=== PATIENT | male | born 1945 | race Caucasian/White ===

== ENCOUNTER 2017-04-28 06:52 | Emergency (ER) | payer MEDICARE, OTHER ==
[~2017-04-28] VITALS: Ht 176.5 cm; Wt 100.0 kg
[~2017-04-28 06:52] MED LIST: AMMONIUM LACTATE121 TOP; BACITRACIN1 GM EX; C 500 PO; CEPHALEXIN500 MG PO; CIPRO XR500 MG PO; CLONAZEPAM0.5 MG PO; COREG12.5 MG PO; COUMADIN5 MG PO; DORZOLAMIDE HCL2 % OP; FISH OIL1000 MG PO; GENTAMICIN0.1 % TOP; GENTAMICIN0.11 EX; GENTAMICIN0.11 TOP; KEFLEX500 MG PO; KETOCONAZOLE2 % EX; LIPITOR40 MG PO; LYRICA100 MG PO; LYRICA300 MG PO; MAXZIDE-2537.5 MG/TA PO; METFORMIN500 MG PO; MICARDIS40 MG PO; MULTIVITAMI3 OR; MULTIVITAMIN PO; OPANA ER20 MG OR; OPANA ER5 MG OR; OPANA10 MG OR; SANTYL250 MG/GM EX; TIMOLOL 0.5%5 ML OP; TRAMADOL HCL50 MG PO; TRAVATAN Z0.004 % OP; TRAVATAN0.0041 OP
[2017-04-28 08:12] LABS: HEMATOCRIT 42.9 % (39.0-50.0); HEMOGLOBIN 14.1 g/dl (14.0-18.0); IMMATURE GRANULOCYTES 0.4 % (0.0-1.0); MEAN CELL VOLUME 98.4 fL CALC (80.0-100.0); MEAN CORPUSCULAR HGB 32.3 pG CALC (26.0-32.0); MEAN CORPUSCULAR HGB CONC 32.9 g/L CALC (32.0-36.0); NEUT# 6.32 thou/uL (1.82-7.42); RED BLOOD COUNT 4.36 mill/uL (4.70-6.10); RED CELL DISTRI WIDTH 13.2 % (11.5-15.5)
[2017-04-28 08:18] LABS: ALBUMIN 3.9 g/dL (3.2-5.0); BILIRUBIN, TOTAL 0.4 mg/dL (0.0-1.4); CREATININE 1.5 mg/dL (0.7-1.3); POTASSIUM 4.4 mmol/l (3.5-5.1); TOTAL PROTEIN 7.1 g/dL (6.3-8.2)
[2017-04-28 08:39] LABS: INTERNATIONAL NORMALIZED RATIO 10.3 RATIO (0.7-1.3); PROTHROMBIN TIME 121.5 SECONDS (9.0-12.5)
[2017-04-28 09:19] VITALS: BP 126/64
== END 2017-04-28 09:23 | disposition home or self-care (01) ==
LOC: ED 06:52
PROVIDERS: Emergency Medicine
DX: R79.1 Abnormal coagulation profile (principal); Z95.5 Presence of coronary angioplasty implant and graft; Z79.01 Long term (current) use of anticoagulants; F17.210 Nicotine dependence, cigarettes, uncomplicated

== ENCOUNTER → 2018-01-01 | Outpatient (REF) | payer MEDICARE, OTHER ==
[2018-01-01 08:18] LABS: INTERNATIONAL NORMALIZED RATIO 1.1 RATIO (0.7-1.3); PROTHROMBIN TIME 11.4 SECONDS (9.0-12.5)
== END | disposition home or self-care (01) ==
LOC: LAB 06:39
PROVIDERS: ATTEND Surgery
DX: Z51.81 Encounter for therapeutic drug level monitoring (principal)

== ENCOUNTER → 2018-05-17 | Outpatient (REF) | payer MEDICARE, OTHER ==
[2018-05-17 11:53] LABS: HEMATOCRIT 39.2 % (39.0-50.0); HEMOGLOBIN 12.6 g/dl (14.0-18.0); IMMATURE GRANULOCYTES 0.5 % (0.0-5.0); MEAN CELL VOLUME 99.5 fL CALC (80.0-100.0); MEAN CORPUSCULAR HGB CONC 32.1 g/L CALC (32.0-36.0); NEUT# 4.33 thou/uL (1.82-7.42); RED BLOOD COUNT 3.94 mill/uL (4.70-6.10)
== END | disposition home or self-care (01) ==
LOC: LABSPEC 11:24
PROVIDERS: ATTEND Internal Medicine Infectious Disease
DX: M86.10 Other acute osteomyelitis, unspecified site (principal); M25.50 Pain in unspecified joint

== ENCOUNTER → 2018-05-24 | Outpatient (REF) | payer MEDICARE, OTHER ==
[2018-05-24 12:13] LABS: HEMATOCRIT 38.6 % (39.0-50.0); HEMOGLOBIN 12.3 g/dl (14.0-18.0); IMMATURE GRANULOCYTES 0.4 % (0.0-5.0); MEAN CELL VOLUME 99.5 fL CALC (80.0-100.0); MEAN CORPUSCULAR HGB 31.7 pG CALC (26.0-32.0); MEAN CORPUSCULAR HGB CONC 31.9 g/L CALC (32.0-36.0); NEUT# 4.71 thou/uL (1.82-7.42); RED BLOOD COUNT 3.88 mill/uL (4.70-6.10); RED CELL DISTRI WIDTH 14.5 % (11.5-15.5)
== END | disposition home or self-care (01) ==
LOC: LABSPEC 11:24
PROVIDERS: ATTEND Internal Medicine Infectious Disease
DX: M86.10 Other acute osteomyelitis, unspecified site (principal); M25.50 Pain in unspecified joint

== ENCOUNTER → 2018-05-31 | Outpatient (REF) | payer MEDICARE, OTHER ==
[2018-05-31 14:53] LABS: HEMATOCRIT 41.2 % (39.0-50.0); HEMOGLOBIN 13.2 g/dl (14.0-18.0); IMMATURE GRANULOCYTES 0.4 % (0.0-5.0); MEAN CELL VOLUME 99.8 fL CALC (80.0-100.0); NEUT# 4.55 thou/uL (1.82-7.42); RED BLOOD COUNT 4.13 mill/uL (4.70-6.10); RED CELL DISTRI WIDTH 14.5 % (11.5-15.5)
[2018-05-31 15:34] LABS: ALBUMIN 4.2 g/dL (3.2-5.0); BILIRUBIN, TOTAL 0.5 mg/dL (0.0-1.4); CREATININE 1.7 mg/dL (0.7-1.3); POTASSIUM 4.4 mmol/l (3.5-5.1)
== END | disposition home or self-care (01) ==
LOC: LAB 14:26
PROVIDERS: ATTEND Internal Medicine Infectious Disease
DX: M86.10 Other acute osteomyelitis, unspecified site (principal); M25.50 Pain in unspecified joint

== ENCOUNTER → 2018-06-07 | Outpatient (REF) | payer MEDICARE, OTHER ==
[2018-06-07 12:10] LABS: HEMATOCRIT 40.3 % (39.0-50.0); HEMOGLOBIN 12.8 g/dl (14.0-18.0); IMMATURE GRANULOCYTES 0.5 % (0.0-5.0); MEAN CORPUSCULAR HGB 31.4 pG CALC (26.0-32.0); MEAN CORPUSCULAR HGB CONC 31.8 g/L CALC (32.0-36.0); NEUT# 5.26 thou/uL (1.82-7.42); RED BLOOD COUNT 4.07 mill/uL (4.70-6.10); RED CELL DISTRI WIDTH 14.6 % (11.5-15.5)
[2018-06-07 12:36] LABS: BILIRUBIN, TOTAL 0.6 mg/dL (0.0-1.4); CREATININE 1.4 mg/dL (0.7-1.3); POTASSIUM 4.3 mmol/l (3.5-5.1); TOTAL PROTEIN 7.6 g/dL (6.3-8.2)
== END | disposition home or self-care (01) ==
LOC: LAB 11:36
PROVIDERS: ATTEND Internal Medicine Infectious Disease
DX: M86.10 Other acute osteomyelitis, unspecified site (principal); M25.50 Pain in unspecified joint

== ENCOUNTER → 2018-06-11 | Outpatient (REF) | payer MEDICARE, OTHER ==
[2018-06-11 08:00] LABS: PROTHROMBIN TIME 10.7 SECONDS (9.0-12.5)
[2018-06-11 08:18] LABS: HEMATOCRIT 40.1 % (39.0-50.0); HEMOGLOBIN 12.7 g/dl (14.0-18.0); IMMATURE GRANULOCYTES 0.5 % (0.0-5.0); MEAN CELL VOLUME 99.8 fL CALC (80.0-100.0); MEAN CORPUSCULAR HGB 31.6 pG CALC (26.0-32.0); MEAN CORPUSCULAR HGB CONC 31.7 g/L CALC (32.0-36.0); NEUT# 4.25 thou/uL (1.82-7.42); RED BLOOD COUNT 4.02 mill/uL (4.70-6.10); RED CELL DISTRI WIDTH 14.7 % (11.5-15.5)
[2018-06-11 08:44] LABS: ALBUMIN 3.9 g/dL (3.2-5.0); BILIRUBIN, TOTAL 0.7 mg/dL (0.0-1.4); CREATININE 1.9 mg/dL (0.7-1.3); POTASSIUM 4.5 mmol/l (3.5-5.1); TOTAL PROTEIN 7.4 g/dL (6.3-8.2)
[2018-06-11 09:00] LABS: CHOLESTEROL HDL RATIO 4.2 (<4.4 (CALC))
[2018-06-11 09:22] LABS: TSH, 3RD GENERATION 1.43 uIU/mL (0.47 - 4.68)
== END | disposition home or self-care (01) ==
LOC: LAB 06:59
PROVIDERS: ATTEND Surgery
DX: E11.65 Type 2 diabetes mellitus with hyperglycemia (principal); E78.2 Mixed hyperlipidemia; I10 Essential (primary) hypertension; E66.01 Morbid (severe) obesity due to excess calories; K43.0 Incisional hernia with obstruction, without gangrene; Z51.81 Encounter for therapeutic drug level monitoring; E55.9 Vitamin D deficiency, unspecified; Z79.899 Other long term (current) drug therapy; Z12.5 Encounter for screening for malignant neoplasm of prostate

== ENCOUNTER 2019-04-05 10:33 | Inpatient (IN) | payer MEDICARE ==
[~2019-04-05] VITALS: Ht 175.3 cm; Wt 104.8 kg
--- NOTE | 2019-04-05 10:50 | NUR ---
PATIENT TO ROOM VIA EMS, BEDSIDE TRIAGE COMPLETED.
[2019-04-05 11:28] LABS: HEMATOCRIT 42.6 % (39.0-50.0); HEMOGLOBIN 13.7 g/dl (14.0-18.0); IMMATURE GRANULOCYTES 0.6 % (0.0-5.0); MEAN CELL VOLUME 98.4 fL CALC (80.0-100.0); MEAN CORPUSCULAR HGB 31.6 pG CALC (26.0-32.0); MEAN CORPUSCULAR HGB CONC 32.2 g/L CALC (32.0-36.0); NEUT# 3.4 thou/uL (1.82-7.42); RED BLOOD COUNT 4.33 mill/uL (4.70-6.10); RED CELL DISTRI WIDTH 13.7 % (11.5-15.5)
[2019-04-05 11:45] LABS: URINE BILIRUBIN - DIPSTICK NEGATIVE (NEGATIVE); URINE BLOOD DIPSTICK SMALL (NEGATIVE); URINE COLOR YELLOW; URINE GLUCOSE - DIPSTICK NEGATIVE (NEGATIVE); URINE KETONE NEGATIVE (NEGATIVE); URINE LEUK ESTERASE NEGATIVE (NEGATIVE); URINE NITRITE - DIPSTICK NEGATIVE (Negative); URINE PH 5.5 (4.5-8.0); URINE PROTEIN - DIPSTICK 100 mg/dL (NEG-TRACE); URINE SPECIFIC GRAVITY >=1.030; URINE UROBILINOGEN - DIPSTICK 0.2 E.U./dL (0.2)
[2019-04-05 11:46] LABS: URINE RBC 0-2 RBC/hpf (0-5); URINE WBC 0-2 WBC/hpf (0-5)
--- NOTE | 2019-04-05 11:50 | NUR ---
PT ASSISTED WITH URINAL AT THIS TIME; PT HAD MODERATE EXERTION WITH MOVEMENT; MONITORING DEVICES IN PLACE; [address]; PT FAMILY AT BEDSIDE; WILL CONTINUE TO MONITOR
[2019-04-05 11:51] LABS: INTERNATIONAL NORMALIZED RATIO 2.4 RATIO (0.7-1.3); PROTHROMBIN TIME 24.1 SECONDS (9.0-12.5)
[2019-04-05 11:56] LABS: ALBUMIN 3.3 g/dL (3.2-5.0); ALKALINE PHOSPHATASE 62 u/l (38-126); ANION GAP 14 (6-22 (CALC)); BUN 27 mg/dL (8-23); BUN/CREATININE RATIO 22 (12-20 (CALC)); CARBON DIOXIDE 26 mmol/l (22-30); CHLORIDE 101 mmol/l (95-108); CREATININE 1.2 mg/dL (0.7-1.3); GFR 59 ML/MIN (>=60 (CALC)); GFR FOR AFR.AMER. > 60 ML/MIN (>=60 (CALC)); SODIUM 137 mmol/l (137-146); TOTAL PROTEIN 6.8 g/dL (6.3-8.2)
[2019-04-05 11:58] LABS: BILIRUBIN, TOTAL 0.8 mg/dL (0.0-1.4); SGOT/AST 49 u/l (19-48)
--- NOTE | 2019-04-05 12:30 | NUR ---
DR TONEY AT BEDSIDE TO DISCUSS POC AND PLAN TO ADMIT; PT VERBALIZES UNDERSTANDING; VSS; WILL CONTINUE TO MONITOR
--- NOTE | 2019-04-05 12:34 | NUR ---
SBAR PRINTED TO FLOOR
--- NOTE | 2019-04-05 12:39 | NUR ---
Patient made inpatient by Dr. Marte and Dr. Kendall
--- NOTE | 2019-04-05 13:00 | NUR ---
DR SHANE AT BEDSIDE
[2019-04-05] MEDS ORDERED: ASPIRIN 81 LOW81 MG PO (13:27)
[2019-04-05] MEDS ORDERED: GABAPENTIN300 M2 PO (13:28)
[2019-04-05] MEDS ORDERED: D 10001000 UNIT PO (13:45)
[2019-04-05] MEDS ORDERED: B-121000 MC4 PO (13:46)
--- NOTE | 2019-04-05 14:00 | NUR ---
PT ASSISTED TO BEDPAN; MODERATE SOFT BM NOTED; PERICARE PROVIDED; MONITORING DEVICES IN PLACE; WILL CONTINUE TO MONITOR; PT ADVISED ON CONTINUED WAIT TIME FOR ADMISSION
--- NOTE | 2019-04-05 15:00 | NUR ---
PT MEDICATED PER MAR; PT RESTING ON STRETCHER; NO S/S OF DISTRESS NOTED; WILL CONTINUE TO MONITOR
--- NOTE | 2019-04-05 15:29 | NUR ---
S: LUIS ARENAS is a 73 M who presents with Pneumonia and Influenza A. He has a history of type II Diabetes, Heart Disease, Afib. All medications in patient's chart were reviewed. Allergy to Iodine O: VS: BP 157/114 mmHg, P 119 bpm, RR 18 breaths/minutes, T 96.9 F W 102 kg, HT 69in, Scr= 1.2 mg/dL ,CrCl= 64.5 ml/min A: Blood culture is pending. P: Patient is on Azithromycin 500mg IV Q24H, Ceftriaxone 1GM IV Q24H. Vancomycin ordered for pharmacy to dose. Start Vancomycin 1000mg IV Q12H. Vancomycin trough is drawn before the 4th dose on 04/07/2019 at 03:30. Vancomycin goal trough is between 15-20 mcg/ml. Pharmacy will follow and or advise on antibiotics use as needed.
--- NOTE | 2019-04-05 16:00 | NUR ---
REPORT CALLED TO BATOOL SPEAR;
--- NOTE | 2019-04-05 16:15 | NUR ---
PT ARRIVED TO MED/SURG ROOM 272 IN STABLE CONDITION VIA STRETCHER ACCOMPANIED BY AMBAR CÁRDENAS AND FAMILY MEMBER;PT AMBULATED WITH A WEAK GAIT AND 2 PERSON ASSIST;PT A&O X3, FORGETFULNESS NOTED AT TIMES;ORIENTED TO ROOM AND CALL LIGHT SYSTEM;PT DENIES ANY CURRENT PAIN OR DISCOMFORTS,PAIN SCALE AND REPORTING EDUACTED;RESPIRATIONS SHALLOW ON O2 @ 3L VIA NC,PT IS NOT HOME DEPENDENT;LUNG SOUNDS COARSE/WET;ABDOMEN DISTENDED/SOFT ON PALPATION WITH HERNIA NOTED,LAST BM 04/05/19;WEAK PEDAL PULSES;HEALING ABRASION NOTED TO LEFT KNEE;EMS #18G TO RAC INFUSING VANCO PER ORDER;ACCUCHECK 115, NO COVERAGE NEEDED;TELE MONITORING IN PLACE;ALLERGY BAND AND FALL BRACLET APPLIED;DROPLET PRECAUTIONS INITIATED;PT DENIES ANY ADDITIONAL NEEDS AND IS ENCOURAGED TO CALL FOR ASSISTANCE IF NEEDED;FALL PRECAUTIONS IN PLACE WITH BED ALARM ON FOR SAFETY;CALL LIGHT IN REACH;TRICIA CONTINUE TO MONITOR
--- NOTE | 2019-04-05 16:20 | NUR ---
Admission Note Report Given to: BATOOL SPEAR Transported by: Wheelchair X Stretcher Transported with: X Nurse Transporter X Patent IV X O2 X Harvest Worker Field Crop Location: ICU X MS2
[2019-04-05 16:46] VITALS: BP 140/87
[2019-04-05 19:35] VITALS: BP 110/61
--- NOTE | 2019-04-05 20:35 | NUR ---
ASSESSMENT COMPLETED. IV SITE PATENT AND SL, FLUSHES WELL. DENIES NEEDS/PAIN. PT. DOES HAVE EXERTIONAL SOB ANDO2 INFUSING PER NC @3LITERS/MIN PER NC. TELEMETRY IN PLACE. UPDATED ON POC. PT. REQUESTS PRN SONATA TO ASSIST WITH SLEEP AND MEDICATED WITH THIS ALONG WITH SCHED MEDS. CALL LIGHT IS IN REACH. WILL CONTINUE TO MONITOR.
--- NOTE | 2019-04-05 20:50 | NUR ---
CALLED AND SPOKE WITH DR. SHANE AND NOTIFIED HIM OF CRITICAL HIGH TROPONIN BEING 0.424 AND THAT PT. HAS NO COMPLAINTS OF CP. DR. SHANE IS THE ONE WHO ORDERED THE STAT TROPONIN. NEW ORDER RECEIVED FOR REPEAT TROPONIN IN 4 HRS AND CALL MD WITH RESULTS. PER DR. SHANE HE WANTS TO BE NOTIFIED OF TROPONIN LEVEL INSTEAD OF GROOVER AND TURNER MD DR. DEL TORO.
--- NOTE | 2019-04-05 22:35 | NUR ---
SPOKE WITH DR. SHANE AND NOTIFIED HIM OF PT'S ALLERFY TO IODINE AND UNABLE TO TAKE CONTRAST FOR CT. NEW ORDERS RECEIVED FOR CT WITHOUT CONTRAST.
--- NOTE | 2019-04-05 23:28 | NUR ---
PT. BACK FROM CT AT THIS TIME VIA W/C ACCOMPANIED BY IS CONSULTANT.
--- NOTE | 2019-04-05 23:59 | NUR ---
EDUCATEION GIVEN ON I/S AND ABLE TO PULL 500, 5 REPS COMPLETED. GOAL SET TO 750. UPDATED ON POC. CALL LIGHT IS IN REACH.
[2019-04-06] VITALS (7 sets, daily range): BP systolic 108–147; BP diastolic 50–72
--- NOTE | 2019-04-06 02:01 | NUR ---
NOTIFIED DR. SHANE OF 0.393 TROPONIN LEVEL REMAINING CRITICAL HIGH, BUT TRENDED DOWN. ORDERS RECIEVED FOR AM LABS AND TO CARRY THEM OUT.
--- NOTE | 2019-04-06 03:42 | NUR ---
PT. RESTING IN BED WITH NO DISTRESS NOTED; DENIES NEEDS/PAIN. ENCOURAGED TO CALL FOR ANY NEEDS. CALL LIGHT IS IN REACH.
--- NOTE | 2019-04-06 07:05 | NUR ---
REPORT RECEIVED FROM AMBAR PEREZ;PT APPEARS TO BE SLEEPING IN SUPINE POSITION;NO S/S OF DISTRESS NOTED;RESPIRATIONS APPEAR EVEN AND UNLABORED ON O2 @ 3L VIA NC;TELE MONITORING IN PLACE;ALL SAFETY PRECAUTIONS NOTED WITH BED IN THE LOWEST POSITION AND BED ALARM ON FOR SAFETY;CALL LIGHT IN REACH;WILL CONTINUE TO MONITOR
[2019-04-06 07:33] LABS: HEMOGLOBIN 12.5 g/dl (14.0-18.0); IMMATURE GRANULOCYTES 0.4 % (0.0-5.0); MEAN CELL VOLUME 103.8 fL CALC (80.0-100.0); MEAN CORPUSCULAR HGB 31.6 pG CALC (26.0-32.0); MEAN CORPUSCULAR HGB CONC 30.5 g/L CALC (32.0-36.0); NEUT# 2.41 thou/uL (1.82-7.42); RED BLOOD COUNT 3.95 mill/uL (4.70-6.10); RED CELL DISTRI WIDTH 13.8 % (11.5-15.5)
[2019-04-06 08:00] LABS: INTERNATIONAL NORMALIZED RATIO 2.6 RATIO (0.7-1.3); PROTHROMBIN TIME 25.7 SECONDS (9.0-12.5)
[2019-04-06 08:02] LABS: ALKALINE PHOSPHATASE 46 u/l (38-126); ANION GAP 10 (6-22 (CALC)); BILIRUBIN, TOTAL 0.4 mg/dL (0.0-1.4); BUN 31 mg/dL (8-23); BUN/CREATININE RATIO 29 (12-20 (CALC)); CARBON DIOXIDE 27 mmol/l (22-30); CHLORIDE 104 mmol/l (95-108); CREATININE 1.1 mg/dL (0.7-1.3); GFR > 60 ML/MIN (>=60 (CALC)); GFR FOR AFR.AMER. > 60 ML/MIN (>=60 (CALC)); POTASSIUM 3.9 mmol/l (3.5-5.1); SGOT/AST 49 u/l (19-48); SODIUM 137 mmol/l (137-146); TOTAL PROTEIN 6.4 g/dL (6.3-8.2)
--- NOTE | 2019-04-06 08:25 | NUR ---
CRITICAL TROP RECEIVED AT THIS TIME RESULTING IN 0.242, SARAH SIMMS NOTIFIED;NO NEW ORDERS RECEIVED AT THIS TIME.
--- NOTE | 2019-04-06 08:30 | NUR ---
PT RESTING IN RECLINER,A&O X3 BUT FORGETFUL AT TIMES;VS OBTAINED AND ASSESSMENT COMPLETED;PT DENIES ANY CURRENT PAIN OR DISCOMFORTS,PAIN SCALE AND REPORTING EDUCATED;RESPIRATIONS SHALLOW ON O2 @ 3L VIA NC;ABDOMEN DISTENDED/SOFT ON PALPATION AND ACTIVE IN ALL 4 QUADRANTS;ABDOMINAL HERNIA NOTED;WEAK PEDAL PULSES;TELE MONITORING IN PLACE;EMS #18G REMOVED DUE TO EXPIRATION DATE WITH CATHETER INTACT,NEW #22G STARTED TO KILO ON 1ST ATTEMPT BY THIS WRITTER,PT TOLERATED WELL;DROPLET PRECAUTIONS IN PLACE;PT DENIES ANY ADDITIONAL NEEDS AND IS ENCOURAGED TO CALL FOR ASSISTANCE IF NEEDED;CALL LIGHT IN REACH;WILL CONTINUE TO MONITOR
--- NOTE | 2019-04-06 11:44 | NUR ---
CARDIOLOGY ANRP AT BEDSIDE WITH PT.
--- NOTE | 2019-04-06 12:15 | NUR ---
PT RESTING AT BEDSIDE EATING LUNCH;RESPIRATIONS EVEN AND UNLABORED ON O2 @ 3L VIA NC;PT DENIES ANY CURRENT PAIN OR DISCOMFORTS;TELE MONITORING IN PLACE;ABX HUNG AT THIS TIME;ACCUCHECK 214, PT COVERED WITH SLIDING SCALE NOVOLOG PER ORDER;PT DENIES ANY ADDITIONAL NEEDS AND IS ENCOURAGED TO CALL FOR ASSISTANCE IF NEEDED;CALL LIGHT IN REACH;WILL CONTINUE TO MONITOR
--- NOTE | 2019-04-06 12:24 | NUR ---
AT BEDSIDE DISCUSSING POC.
--- NOTE | 2019-04-06 14:23 | NUR ---
AMBAR DUPREE AT BEDSIDE ATTEMPTING IV SITE.
--- NOTE | 2019-04-06 15:00 | NUR ---
PT TRANSPORTED TO [facility] IN STABLE CONDITION VIA WHELCHAIR ACCOMPANIED BY CNA. GRACIA
--- NOTE | 2019-04-06 15:40 | NUR ---
PT RETURNED TO MED/SURG IN STABLE CONDITION VIA WHEELCHAIR ACCOMPANIED BY PINKY SAMUEL.
--- NOTE | 2019-04-06 15:45 | NUR ---
PT RESTING IN SEMI FOWLERS POSITION;RESPIRATIONS REMAIN EVEN AND UNLABORED,SHALLOW ON O2 @ 3L VIA NC;PT DENIES ANY CURRENT PAIN OR NEEDS;TELE MONITORING IN PLACE;IV SITE PATENT;DROPLET PRECAUTIONS IN PLACE;PT ENCOURAGED TO CALL FOR ASSISTANCE IF NEEDED;FALL PRECAUTIONS IN PLACE WITH CALL LIGHT IN REACH;WILL CONTINUE TO MONITOR
--- NOTE | 2019-04-06 19:59 | NUR ---
PT SLEEPING AT THIS TIME. NO S/O DISTRESS NOTED. CALL LIGHT AT BEDSIDE.
--- NOTE | 2019-04-06 22:21 | NUR ---
PT MEDICATED ORDERS PROVIDE. ASSESSMENT COMPLETED AT THIS TIME. PT WAS SLEEPING I ENTERED THE ROOM, AWOKE TO MY VOICE AND TOUCH. PT DENIES PAIN AND REPORTS FEELING WELL. LOCX3. DENIES ANY OTHER NEEDS AND ENCOURAGED PT TO CALL NEEDS ARISE. BED ALARM ON FOR SAFETY PRECAUTIONS/FORGETFULLNESS.
--- NOTE | 2019-04-06 23:50 | NUR ---
PT MEDICATED W/IV ANTIBIOTIC THERAPY. PT WAS SLEEPING, AWOKE TO MY VOICE, BUT QUICKLY RETURNED TO SLEEP. NO S/O DISTRESS NOTED.
[2019-04-07 03:25] VITALS: BP 118/70
[2019-04-07 03:50] LABS: HEMATOCRIT 36.8 % (39.0-50.0); HEMOGLOBIN 11.6 g/dl (14.0-18.0); IMMATURE GRANULOCYTES 0.2 % (0.0-5.0); MEAN CELL VOLUME 100.8 fL CALC (80.0-100.0); MEAN CORPUSCULAR HGB 31.8 pG CALC (26.0-32.0); MEAN CORPUSCULAR HGB CONC 31.5 g/L CALC (32.0-36.0); NEUT# 1.83 thou/uL (1.82-7.42); RED BLOOD COUNT 3.65 mill/uL (4.70-6.10); RED CELL DISTRI WIDTH 13.9 % (11.5-15.5)
[2019-04-07 04:04] LABS: ANION GAP 9 (6-22 (CALC)); BUN 33 mg/dL (8-23); BUN/CREATININE RATIO 29 (12-20 (CALC)); CARBON DIOXIDE 28 mmol/l (22-30); CHLORIDE 107 mmol/l (95-108); CREATININE 1.1 mg/dL (0.7-1.3); GFR > 60 ML/MIN (>=60 (CALC)); GFR FOR AFR.AMER. > 60 ML/MIN (>=60 (CALC)); MAGNESIUM 2.1 mg/dL (1.6-2.3); POTASSIUM 4.2 mmol/l (3.5-5.1); SODIUM 139 mmol/l (137-146)
--- NOTE | 2019-04-07 04:29 | NUR ---
PT SLEEPING AT THIS TIME. NO S/O DISTRESS NOTED. WILL MEDICATE PT W/IV ANTIBIOTICS ORDERED SOON PENDING VANCO TROUGH IS AVAILABLE.
--- NOTE | 2019-04-07 04:55 | NUR ---
PT ASSISTED TO BSC AND BACK TO BED. IV ANTIBIOTICS ARE RUNNING AT THIS TIME. 200CC OF DARK YELLOW URINE OUTPUT AT THIS TIME. PT UP AND TALKATIVE SHOWING ME PICTURES OF HIS CAR COLLECTION AND FAMILY.
--- NOTE | 2019-04-07 07:36 | NUR ---
PRELIMINARY BLOOD CULTURE RESULTS SHOWING ONE BOTTLE GRAM POSITIVE COCCI, CALLED TO PHYSICIAN. PT CURRENTLY RECEIVING VANCOMYCIN.
--- NOTE | 2019-04-07 07:59 | NUR ---
Vancomycin consult Weight: 103 Kilograms Current dose being given: 1000 mg Current dosing interval: 12 hrs Current infusion time (hrs): 2 Trough level obtained: 12 mcg/ml Timing of trough - # of hrs before next dose: 0.5 Hrs New rate constant (shannan): 0.067 hr-1 Half-life: 10.35 Hours Vd from levels: 72.10 Liters (0.7 L/kg) CLvanco= 4.831 L/hr Vancomycin 1250 mg q 12 hrs start at 1600 today Infuse over 2 hrs Expected Cpeak: 29 mcg/mL Expected Ctrough: 15 mcg/mL next trough on 04/09/19 at 0330
[2019-04-07 09:00] VITALS: BP 110/60
[2019-04-07 10:55] VITALS: BP 128/54
[2019-04-07] MEDS ORDERED: ENTRESTO 24-261 TAB PO (14:01)
[2019-04-07 15:05] VITALS: BP 131/55
[2019-04-07 17:01] LABS: INTERNATIONAL NORMALIZED RATIO 1.9 RATIO (0.7-1.3); PROTHROMBIN TIME 19.4 SECONDS (9.0-12.5)
--- NOTE | 2019-04-07 19:32 | NUR ---
PT ALERT AND ORIENTED X 3. ABLE TO MAKE NEEDS KNOWN. CONTINUES ON ABT FOR PNA WITH NO ADVERSE REACTIONS NOTED. ON OXYGEN 3L VIA NASAL CANNULA. ASSISTED WITH TRANSFERS TO BEDSIDE COMMODE. EDUCATED TO CALL NURSE FOR ASSISTANCE. CALL SOLANO WITHIN REACH. NO C/O PAIN. INDWELLING KING PATENT. BED IN LOWEST POSITION.
[2019-04-07 19:35] VITALS: BP 148/85
--- NOTE | 2019-04-07 20:55 | NUR ---
PT ASSISTED TO BSC. PT ASKED TO SIT FOR AWHILE. LEFT W/CALL LIGHT W/IN REACH AND PT REMINDED TO CALL WHEN HE NEEDS TO GET BACK TO BED.
--- NOTE | 2019-04-07 22:47 | NUR ---
PT MEDICATED ORDERS PROVIDE AND ASSESSMENT COMPLETED AT THIS TIME PT ASSISTED FROM BSC BACK TO BED. 500CC URINE EMPTIED AT THIS TIME YELLOW CLEAR. LUNG SOUNDS ARE WHEEZY THROUGHOUT
--- NOTE | 2019-04-08 00:23 | NUR ---
PT ANTIBIOTIC THERAPY ADMINISTERED AT THIS TIME. PT WAS SLEEPING, NO S/O DISTRESS NTOED.
[2019-04-08 03:39] VITALS: BP 108/66
--- NOTE | 2019-04-08 04:03 | NUR ---
PT MEDICATED W/IV ANTIBIOTIC THERAPY. PT AWAKE AND TALKATIVE. DENIES ANY OTHER NEEDS AT THIS TIME. CALL LIGHT W/IN REACH.
[2019-04-08 05:47] LABS: HEMATOCRIT 41.9 % (39.0-50.0); HEMOGLOBIN 13.5 g/dl (14.0-18.0); IMMATURE GRANULOCYTES 0.3 % (0.0-5.0); MEAN CELL VOLUME 98.6 fL CALC (80.0-100.0); MEAN CORPUSCULAR HGB 31.8 pG CALC (26.0-32.0); MEAN CORPUSCULAR HGB CONC 32.2 g/L CALC (32.0-36.0); NEUT# 1.72 thou/uL (1.82-7.42); RED BLOOD COUNT 4.25 mill/uL (4.70-6.10); RED CELL DISTRI WIDTH 13.6 % (11.5-15.5)
[2019-04-08 06:02] LABS: ANION GAP 14 (6-22 (CALC)); BUN 30 mg/dL (8-23); BUN/CREATININE RATIO 28 (12-20 (CALC)); CARBON DIOXIDE 25 mmol/l (22-30); CHLORIDE 103 mmol/l (95-108); CREATININE 1.1 mg/dL (0.7-1.3); GFR > 60 ML/MIN (>=60 (CALC)); GFR FOR AFR.AMER. > 60 ML/MIN (>=60 (CALC)); MAGNESIUM 1.8 mg/dL (1.6-2.3); POTASSIUM 4.3 mmol/l (3.5-5.1); SODIUM 137 mmol/l (137-146)
[2019-04-08 06:05] LABS: INTERNATIONAL NORMALIZED RATIO 2.7 RATIO (0.7-1.3); PROTHROMBIN TIME 26.7 SECONDS (9.0-12.5)
[2019-04-08 08:30] VITALS: BP 137/71
[2019-04-08 11:25] VITALS: BP 126/70
[2019-04-08 15:48] VITALS: BP 150/80
[2019-04-08] MEDS ORDERED: TAM75CAP PO (16:24)
[2019-04-08] MEDS ORDERED: LEVAQUIN750 MG PO (16:26)
[2019-04-08] MEDS ORDERED: PREDNISONE10 MG PO (16:26)
[2019-04-08] MEDS ORDERED: LASIX 20 MG TAB20 MG PO (16:27)
[2019-04-08] MEDS ORDERED: JANUVIA100 MG PO (16:28)
--- NOTE | 2019-04-08 17:02 | NUR ---
6 MINUTE WLK TEST COMPLETE. PT SAO2 REMAINED ABOVE 96% THROUGHOUT TEST.
== END 2019-04-08 18:02 | disposition home health service (06) | DRG 291 ==
LOC: ED 10:33 → ED-I 12:01 → ED 12:31 → MS2 12:32
PROVIDERS: Family Medicine; Nurse Practitioner Family; ADMIT Internal Medicine; ATTEND Internal Medicine
DX: I11.0 Hypertensive heart disease with heart failure (principal); J10.00 Influenza due to other identified influenza virus with unspecified type of pneumonia; I50.21 Acute systolic (congestive) heart failure; J96.01 Acute respiratory failure with hypoxia; J44.1 Chronic obstructive pulmonary disease with (acute) exacerbation; J44.0 Chronic obstructive pulmonary disease with (acute) lower respiratory infection; I24.8 Other forms of acute ischemic heart disease; I48.20 Chronic atrial fibrillation, unspecified; I16.0 Hypertensive urgency; I25.10 Atherosclerotic heart disease of native coronary artery without angina pectoris; E11.42 Type 2 diabetes mellitus with diabetic polyneuropathy; E78.5 Hyperlipidemia, unspecified; H40.9 Unspecified glaucoma; H54.61 Unqualified visual loss, right eye, normal vision left eye; G89.4 Chronic pain syndrome; F17.210 Nicotine dependence, cigarettes, uncomplicated; Z95.1 Presence of aortocoronary bypass graft; Z79.01 Long term (current) use of anticoagulants; Z79.84 Long term (current) use of oral hypoglycemic drugs
CPT/HCPCS: J0692; J3370

== ENCOUNTER 2019-04-20 16:36 | Inpatient (IN) | payer OTHER, MEDICARE, BC ==
[~2019-04-20] VITALS: Ht 175.3 cm; Wt 101.3 kg
[2019-04-20] VITALS (12 sets, daily range): BP systolic 65–121; BP diastolic 33–62
[~2019-04-20 16:36] MED LIST changes: +ASPIRIN 81 LOW81 MG PO; +B-121000 MC4 PO; +D 10001000 UNIT PO; +ENTRESTO 24-261 TAB PO; +GABAPENTIN300 M2 PO; +JANUVIA100 MG PO; +LASIX 20 MG TAB20 MG PO; +LEVAQUIN750 MG PO; +PREDNISONE10 MG PO; +TAM75CAP PO
--- NOTE | 2019-04-20 17:24 | NUR ---
TO ROOM VIA WHEELCHAIR
--- NOTE | 2019-04-20 17:43 | NUR ---
PT PRESENTS WITH LOW BP SYSTOLIC AND HR IN THE 40s STATED BY TRIAGE NURSE. PT IS WEAK AND CANNOT STAY ON FEET WITHOUT ASSISTANCE. CAP REFILL AT 5 SEC. PT IS PLACED IN [place] POSITION. IV INITIATED AND FLUIDS FLOWING. PT DAUGHTER STATES PT ANSWERED THE DOOR AT HOME AND FEEL SCRAPING HIS KNEE. DAUGHTER IS NOT SURE IF HE HIT HIS HEAD OR NOT BUT PT STATES THAT HE DID NOT. THERE IS NO SIGNS OF TRAUMA ON HEAD. ONLY TWO SCRAPES NOTED ON KNEES. BP 86/50
[2019-04-20 17:47] LABS: HEMATOCRIT 47.3 % (39.0-50.0); IMMATURE GRANULOCYTES 0.9 % (0.0-5.0); MEAN CELL VOLUME 95.4 fL CALC (80.0-100.0); MEAN CORPUSCULAR HGB 31.7 pG CALC (26.0-32.0); MEAN CORPUSCULAR HGB CONC 33.2 g/L CALC (32.0-36.0); NEUT# 11.2 thou/uL (1.82-7.42); RED BLOOD COUNT 4.96 mill/uL (4.70-6.10); RED CELL DISTRI WIDTH 14.3 % (11.5-15.5)
--- NOTE | 2019-04-20 17:53 | NUR ---
BP 98/54 PT CONTINUES TO BE IN [place] POSITION WITH FLUIDS FLOWING.
[2019-04-20 18:02] LABS: ALBUMIN 3.6 g/dL (3.2-5.0); CREATININE 1.6 mg/dL (0.7-1.3); MAGNESIUM 1.8 mg/dL (1.6-2.3); POTASSIUM 3.7 mmol/l (3.5-5.1)
[2019-04-20 18:17] LABS: HEMOGLOBIN 15.7 g/dl (14.0-18.0); INTERNATIONAL NORMALIZED RATIO 6.8 RATIO (0.7-1.3); PROTHROMBIN TIME 65.1 SECONDS (9.0-12.5)
[2019-04-20 18:18] LABS: BILIRUBIN, TOTAL 1.9 mg/dL (0.0-1.4)
--- NOTE | 2019-04-20 18:30 | NUR ---
PT SEEMS MORE ALERT, IS TALKING AND JOKING WITH SON IN LAW. PT IS CHANGED TO SUPINE POSITION. BP IS 102/57
[2019-04-20 18:33] LABS: TSH, 3RD GENERATION 1.38 uIU/mL (0.47 - 4.68)
--- NOTE | 2019-04-20 19:40 | NUR ---
ASSISTED PT TO COLLECT URINE SPECIMEN.
[2019-04-20 20:13] LABS: URINE BILIRUBIN - DIPSTICK NEGATIVE (NEGATIVE); URINE BLOOD DIPSTICK NEGATIVE (NEGATIVE); URINE COLOR YELLOW; URINE GLUCOSE - DIPSTICK NEGATIVE (NEGATIVE); URINE KETONE NEGATIVE (NEGATIVE); URINE LEUK ESTERASE NEGATIVE (NEGATIVE); URINE NITRITE - DIPSTICK NEGATIVE (Negative); URINE PROTEIN - DIPSTICK NEGATIVE (NEG-TRACE); URINE UROBILINOGEN - DIPSTICK 0.2 E.U./dL (0.2)
--- NOTE | 2019-04-20 20:47 | NUR ---
REPORT REILLY TO [facility]
--- NOTE | 2019-04-20 20:57 | NUR ---
PT TRANSPORTED TO ICU ROOM 7. CARE ASSUMED TO DIAZ VILLALTA.
--- NOTE | 2019-04-20 21:00 | NUR ---
PT ARRIVED TO UNIT VIA STRETCHER WITH ER STAFF; ALERT AND ORIENTED X 3. DENIES PAIN. RESPIRATIONS EVEN AND UNLABORED ON ROOM AIR; LUNGS ARE CLEAR. PT STOOD AND AMBULATED SHORT DISTANCE TO BED WITH ONE PERSON ASSIST; AMBULATES WITH WALKER AT HOME AND HAS HAD FALLS; ABRASION NOTED TO LEFT KNEE FROM FALL. CALLUSES TO BILATERAL FEET; PT EXPERIENCES PERIPHERAL NEUROPATHY. ACCU CHECK 121 ON ARRIVAL. IV SITE TO RAC APPEARS HEALTHY AND FLUSHES. CONNECTED TO ATTAHCMENTS; VSS AT THIS TIME. ORIENTED TO ROOM AND CALL LIGHT SYSTEM. PLAN OF CARE DISCUSSED. PT ENCOURAGED TO VERBALIZE CONCERNS. STATES UNDERSTANDING. SAFETY MEASURES IN PLACE. CALL LIGHT WITHIN REACH.
--- NOTE | 2019-04-20 21:32 | NUR ---
SECOND BLOOD PRESSURE OF 79/46 HR 85; URINE OUTPUT SINCE ARRIVAL [address] NEW ORDERS FROM DR THMOAS FOR A 3L BOLUS. PT ASMYPTOMATIC. RESPOSITIONED HIMSELF ONTO RIGHT SIDE.
--- NOTE | 2019-04-20 22:34 | NUR ---
BOLUS INFUSING NOW; NEW IV STARTED TO LINDSEY AND VANCO INFUSING WELL. PT HAS NO REQEUSTS OR CONCERNS AT THIS TIME. BP IMPROVED CURRENTLY 91/57.
--- NOTE | 2019-04-20 23:42 | NUR ---
DAUGHTER CALLED FOR UPDATE; QUESTIONS ANSWERED TO SATISFACTION.
[2019-04-21] VITALS (27 sets, daily range): BP systolic 71–125; BP diastolic 39–85
--- NOTE | 2019-04-21 01:19 | NUR ---
3L BOLUS AND ABT ALL INFUSED AND COMPLETED; BP 101/48. WILL CONTINUE TO CLOSETLY MONTIOR BP.
--- NOTE | 2019-04-21 02:06 | NUR ---
ASSISTED PT WITH VOID OF 325ML; PT STATES THAT HIS NEUROPATHY IS TOO SEVERE IN HIS HANDS TO HOLD THE URINAL. SPO2 PROB APPLIED TO FOREHEAD R/T POOR PERFUSION TO HANDS AND TOES.
--- NOTE | 2019-04-21 04:50 | NUR ---
LAB AT BEDSIDE.
[2019-04-21 05:24] LABS: HEMATOCRIT 42.9 % (39.0-50.0); IMMATURE GRANULOCYTES 0.8 % (0.0-5.0); MEAN CELL VOLUME 96.8 fL CALC (80.0-100.0); MEAN CORPUSCULAR HGB 30.9 pG CALC (26.0-32.0); MEAN CORPUSCULAR HGB CONC 31.9 g/L CALC (32.0-36.0); NEUT# 8.69 thou/uL (1.82-7.42); RED BLOOD COUNT 4.43 mill/uL (4.70-6.10); RED CELL DISTRI WIDTH 14.6 % (11.5-15.5)
[2019-04-21 05:34] LABS: HEMOGLOBIN 13.7 g/dl (14.0-18.0)
[2019-04-21 05:35] LABS: ANION GAP 10 (6-22 (CALC)); BUN 27 mg/dL (8-23); BUN/CREATININE RATIO 22 (12-20 (CALC)); CARBON DIOXIDE 23 mmol/l (22-30); CHLORIDE 105 mmol/l (95-108); CREATININE 1.2 mg/dL (0.7-1.3); GFR 59 ML/MIN (>=60 (CALC)); GFR FOR AFR.AMER. > 60 ML/MIN (>=60 (CALC)); POTASSIUM 3.4 mmol/l (3.5-5.1); SODIUM 134 mmol/l (137-146)
[2019-04-21 05:42] LABS: PROTHROMBIN TIME 63.6 SECONDS (9.0-12.5)
[2019-04-21 05:43] LABS: INTERNATIONAL NORMALIZED RATIO 6.6 RATIO (0.7-1.3)
--- NOTE | 2019-04-21 06:45 | NUR ---
RECIEVED REPORT FROM AMBAR PERALES. ASSUMED PT CARE.
--- NOTE | 2019-04-21 08:00 | NUR ---
PT A&OX4, ABLE TO MAKE NEEDS KNOWN. PT DENIES CP, SOB OR DISTRESS AT THIS TIME. RESPIRATIONS EVEN/ UNLABORED, LS CLEAR THROUGHOUT, ABDOMEN SOFT, NON-TENDER. BSX4 ACTIVE, LBM 1-22. PT REMAINS IN AFIB, HR 80. CALL LIGHT IN REACH. WILL MONITOR.
--- NOTE | 2019-04-21 08:55 | NUR ---
NOTIFIED DAUGHTER JAGDISH TO BRING IN PT TIMOLOL EYYE GTTS. PER PHARMACY THEY ARE ON BACK ORDER. PT DAUGHTER STATED SHE WILL BRING THEM IN FOR PT.
--- NOTE | 2019-04-21 09:15 | NUR ---
DR. SHANE AT BEDSIDE FOR ASSESSMENT AND TO DISCUSS PLAN OF CARE. NEW ORDERS RECIEVED.
--- NOTE | 2019-04-21 09:48 | NUR ---
S: ULIS AREANS is a 73 M who presents with Pneumonia. He has a history of DM, Heart Disease, Glucoma, A-Fib, Spine Disease Neuropathy . All medications in patient's chart were reviewed. O: VS: BP: 122/85 mmHg , P: 76 bpm, RR: 22 breath per minutes,T: 97.1 F W: 102 kg, HT: 69 in, Scr= 1.2 mg/dL,CrCl= 64.5 ml/min A: No cultures pending. P: Patient is on Zosyn 3.375 GM IV Q6H. Vancomycin ordered for pharmacy to dose. Start Vancomycin 1,000 MG IV Q12H. Vancomycin trough is drawn 30 minutes before the 4th dose on 04/22/19 at 0930. Vancomycin goal trough is between 15-20 mcg/ml. Pharmacy will follow and or advise on antibiotics use as needed.
--- NOTE | 2019-04-21 10:00 | NUR ---
PT RESTING IN BED, TALKING ON PERSONAL CELL PHONE. OFFERS NO COMPLAINTS AT THIS TIME.
--- NOTE | 2019-04-21 11:30 | NUR ---
DIETARY ON UNIT, LUNCH TRAY SET UP.
--- NOTE | 2019-04-21 12:00 | NUR ---
PT ASSISTED WITH URINAL. CALL LIGHT IN REACH. WILL MONITOR.
--- NOTE | 2019-04-21 13:30 | NUR ---
PT RESTING IN BED, RESPIRATIONS EVEN/UNLABORED. PT CONTINUES WITH INTERMITTANT HYPOTENSION. PT REPORTS NO DISTRESS AT THIS TIME.
--- NOTE | 2019-04-21 14:40 | NUR ---
FAMILY ARRIVED AT BEDSIDE.
--- NOTE | 2019-04-21 15:57 | NUR ---
Dali Liriano APRN, notified that we are still waiting on family to bring in timolol from home. Timolol 0.5% currently out of stock due to recent backorder.
--- NOTE | 2019-04-21 16:17 | NUR ---
PT RESTING IN BED WITH EYES CLOSED. RESPIRATIONS EVEN/UNLABORED.
--- NOTE | 2019-04-21 17:57 | NUR ---
PT SITTING UP ON SIDE OF BED, EATING DINNER. OFFERS NO COMPLAINTS AT THIS TIME.
--- NOTE | 2019-04-21 19:00 | NUR ---
PATIENT LAYS ON HIS RIGHT SIDE. PT ABLE TO PULL HIMSELF UP AND REPSOITION HIMSELF. ALERT AND ORIENTED X4. ON ROOM AIR. NO SOB NOTED. HEAD TO TOE NURSING ASSESSMENT PERFORMED. LINDSEY AND RAC IV'S INTACT. FLUIDS INFUSING PROPERLY. POC FOR TONIGHT DISCUSSED. DENIES PAIN. AFIB CONTROLLED ON TELE. CALL LIGHT WITHIN REACH.
--- NOTE | 2019-04-21 20:00 | NUR ---
PT LAYS ON HIS RIGHT SIDE. NO ACUTE DISTRESS HWON. RESTS WITH EYES CLOSED. CALL LIGHT WITHIN REACH.
--- NOTE | 2019-04-21 22:10 | NUR ---
PT TOLERATE DHIS BEDTIME MEDS WELL. VOIDS 250 IN URINAL, YELLOW/CLEAR. NO COMPLAINTS. PT ASSSISTED WITH HOLDING URINAL. HE REPORTS NO SENSATION ON BILAT HANDS AND FEET WHICH IS HIS BASELINE. PT AWAKE AND CONVERSATES. CALL LIGHT WITHIN REACH.
[2019-04-22] VITALS (19 sets, daily range): BP systolic 90–128; BP diastolic 41–65
--- NOTE | 2019-04-22 02:14 | NUR ---
PT LAYS WITH HOB ABOUT 30 DEGREES. RESTS WITH EYES CLOSED. CALL LIGHT WITHIN REACH. NO ACUTE DISTRESS SHOWN.
--- NOTE | 2019-04-22 04:22 | NUR ---
PATIENT LAYS ON HIS RIGHT SIDE. NO ACUTE DISTRESS SHOWN. AWAKENS EASILY WITH VERBAL STIMULI. CALL LIGHT WITHIN REACH.
[2019-04-22 05:07] LABS: HEMATOCRIT 39.8 % (39.0-50.0); HEMOGLOBIN 13.2 g/dl (14.0-18.0); MEAN CELL VOLUME 96.4 fL CALC (80.0-100.0); MEAN CORPUSCULAR HGB CONC 33.2 g/L CALC (32.0-36.0); RED BLOOD COUNT 4.13 mill/uL (4.70-6.10); RED CELL DISTRI WIDTH 14.8 % (11.5-15.5)
[2019-04-22 05:41] LABS: ANION GAP 10 (6-22 (CALC)); BUN 23 mg/dL (8-23); BUN/CREATININE RATIO 20 (12-20 (CALC)); CARBON DIOXIDE 25 mmol/l (22-30); CHLORIDE 102 mmol/l (95-108); CREATININE 1.2 mg/dL (0.7-1.3); GFR 59 ML/MIN (>=60 (CALC)); GFR FOR AFR.AMER. > 60 ML/MIN (>=60 (CALC)); POTASSIUM 3.5 mmol/l (3.5-5.1); SODIUM 134 mmol/l (137-146)
--- NOTE | 2019-04-22 06:45 | NUR ---
RECIEVED REPORT FROM AMBAR CRANE. ASSUMED PT CARE.
--- NOTE | 2019-04-22 07:30 | NUR ---
PT RESTING IN BED, A&OX4, ABLE TO MAKE NEEDS KNOWN. PT DENIES CP, REMAINS AFIB WITH PVC'S ON TELEMETRY, HR 76. RESPIRATIONS EVEN/UNLABORED, SA02@97% RA. ABDOMEN DISTENDED, BSX4 ACTIVE, LBM 04-20-19. BS 203, S/S COVERAGE ORDERED. CALL LIGHT IN REACH. WILL MONITOR.
--- NOTE | 2019-04-22 09:00 | NUR ---
PT ASSISTED TO THE RECLINER. PT TOLERATED TRANSFER WELL.
--- NOTE | 2019-04-22 09:30 | NUR ---
ACOSTA COVINGTON AT BEDSIDE FOR ASSESMENT AND TO DISCUSS PLAN OF CARE. NEW ORDERS RECIEVED.
--- NOTE | 2019-04-22 09:45 | NUR ---
RADIOLOGY AT BEDSIDE FOR CXR, LAB AT BEDSIDE FOR BLOOD DRAW.
[2019-04-22 09:56] LABS: INTERNATIONAL NORMALIZED RATIO 2.3 RATIO (0.7-1.3)
--- NOTE | 2019-04-22 10:30 | NUR ---
PT REMAINS IN RECLINER, TALKING ON PERSONAL CELL PHONE.
--- NOTE | 2019-04-22 11:45 | NUR ---
FAMILY ARRIVED AT BEDSIDE.
--- NOTE | 2019-04-22 13:19 | NUR ---
PT ASSISTED WITH URINAL, FAMILY REMAINS AT BEDSIDE.
--- NOTE | 2019-04-22 14:10 | NUR ---
PT RESTING IN BED WITH EYES CLOSED. CALL LIGHT IN REACH. WILL MONITOR.
--- NOTE | 2019-04-22 15:54 | NUR ---
S: LUIS ARENAS is a 73 M who presents with pneumonia. He has a history of AFib, glaucoma, T2DM, HTN, dyslipidemia, and CAD. All medications in patient's chart were reviewed. O: VS: BP: 123/53 mmHg, P: 76 beats/min, RR: 19 breaths/min, T: 97 F W: 102 kg, HT: 69 in, Scr: 1.2 mg/dL, CrCl: 64.5 ml/min Vancomycin trough on 04/22/19: 13 mcg/mL A: No cultures are currently pending. Vancomycin trough is subtherapeutic but expected to increase. Will re-check P: Patient is on Zosyn 3.375 gm IV Q6H. Vancomycin ordered for pharmacy to dose. Continue Vancomycin 1 gm IV Q12H. Vancomycin trough is to be drawn on 04/23/19 at 21:30. Vancomycin goal trough is between 15-20 mcg/ml. Pharmacy will follow and or advise on antibiotics use as needed.
--- NOTE | 2019-04-22 16:00 | NUR ---
PT RESTING IN BED. AFIB ON TELEMETRY, HR 76. RESPIRATIONS EVEN/UNLABORED. CALL LIGHT IN REACH. WILL MONITOR.
--- NOTE | 2019-04-22 17:45 | NUR ---
DIETARY ON UNIT, DINNER TRAY SET UP.
--- NOTE | 2019-04-22 19:41 | NUR ---
PT LAYS ON HIS RIGHT SIDE. NO SOB NOTED. DENIES PAIN, SOB. HEAD TO TOE NURSING ASSESSMENT PERFORMED. ALERT AND ORIENTED 4. ABLE TO ANSWER ALL QUESTIONS, FOLLOWS ALL COMMANDS. SELF REPOSITIONS. LINDSEY AND RAC IV'S INTACT. FLUIDS INFUSING PROPERLY. POC FOR TONIGHT DISCUSSED. CALL LIGHT WITHIN REACH.
[2019-04-22] MEDS ORDERED: WARFARIN5 MG PO (22:06)
--- NOTE | 2019-04-22 22:10 | NUR ---
PATIENT TOLERATES MEDS WELL. ABLE TO SWALLOW. NO ACUTE DISTRES SSHOWN. ASSITED WITH URINAL.
--- NOTE | 2019-04-22 23:50 | NUR ---
PT WIRE WINDING MACHINE OPERATOR LIGHT FOR ASSISTANCE WITH URINAL. NO ACUTE DISTRES SSHOWN. CALL LIGHT WITHIN REACH.
[2019-04-23] VITALS (20 sets, daily range): BP systolic 97–137; BP diastolic 38–70
--- NOTE | 2019-04-23 01:27 | NUR ---
PT CABIN WORKER LIGHT FOR ASSISTANCE WITH URINAL. NO ACUTE DISTRESS HSOWN. CALL LIGHT WITHIN REACH.
--- NOTE | 2019-04-23 03:00 | NUR ---
PT AWAKE. SENIOR FRONT END ENGINEER LIGHT FOR ASSISTANCE WITH URINAL. NO ACUTE DISTRES SHOWN.
[2019-04-23 05:27] LABS: PROTHROMBIN TIME 16.5 SECONDS (9.0-12.5)
[2019-04-23 05:32] LABS: INTERNATIONAL NORMALIZED RATIO 1.6 RATIO (0.7-1.3)
[2019-04-23 05:36] LABS: ANION GAP 10 (6-22 (CALC)); BUN 19 mg/dL (8-23); BUN/CREATININE RATIO 19 (12-20 (CALC)); CARBON DIOXIDE 26 mmol/l (22-30); CHLORIDE 101 mmol/l (95-108); GFR > 60 ML/MIN (>=60 (CALC)); GFR FOR AFR.AMER. > 60 ML/MIN (>=60 (CALC)); POTASSIUM 3.3 mmol/l (3.5-5.1); SODIUM 134 mmol/l (137-146)
[2019-04-23 05:38] LABS: MAGNESIUM 1.3 mg/dL (1.6-2.3)
--- NOTE | 2019-04-23 05:51 | NUR ---
PT AWAKE WATCHES TV. NO ACUTE DISTRESS SHOWN. CALL LIGHT WITHIN REACH.
--- NOTE | 2019-04-23 08:00 | NUR ---
PT A&Ox4. BEEBE. SKIN WARM/DRY/PINK. ABRASION TO L KNEE, HEALING WOUNDS TO BILATERAL FEET. DENIES PAIN. URINARY FREQUENCY D/T LASIX. EDEMA TO TESTICLES. BREATHING EVEN/UNLABORED.
--- NOTE | 2019-04-23 10:25 | NUR ---
LEXI LAZCANO, @BEDSIDE FOR ASSESSMENT.
--- NOTE | 2019-04-23 12:00 | NUR ---
PT SITTING UP ON SIDE OF BED, EATING LUNCH. BREATHING EVEN/UNLABORED. NO NEEDS AT THIS TIME.
--- NOTE | 2019-04-23 14:45 | NUR ---
ASSISTING PT WITH URINAL AGAIN. PT ABLE TO REPOSITION SELF. PT FREIENDLY/TALKATIVE TOWARDS STAFF.
--- NOTE | 2019-04-23 17:45 | NUR ---
3RD DAY PHOTOS TAKEN.
--- NOTE | 2019-04-23 19:00 | NUR ---
REPORT RECEIVED FROM AMBAR VALENTIN. PT RESTING IN BED ON RIGHT SIDE; ALERT AND ORIENTED. DENIES PAIN. RESPIRATIONS EVEN AND UNLABORED ON ROOM AIR. LUNGS ARE COURSE WITH WHEEZING; NO SOB NOTED. PLAN OF CARE REVIEWED. PT ENCOURAGED TO VERBLIZE CONCERNS. STATES UNDERSTANDING. SAFETY MEASURES IN PLACE. CALL LIGHT WITHIN REACH.
--- NOTE | 2019-04-23 21:27 | NUR ---
ASSISTED PT WITH VOID OF 200ML CLEAR YELLOW URINE. HS MEDICATIONS TAKEN. 2 UNITS OF NOVOLOG AND HS SNACK OFFERED.
--- NOTE | 2019-04-23 21:36 | NUR ---
LAB AT BEDSIDE FOR VANCO TROUGH.
[2019-04-24] VITALS (16 sets, daily range): BP systolic 96–134; BP diastolic 44–72
--- NOTE | 2019-04-24 | NUR ---
PT ASLEEP AT THIS TIME WITH NO SIGNS OF DISTRESS. RESPIRATIONS EVEN AND UNLABORED ON ROOM AIR. VSS. IV FLUIDS INFUSING WITHOUT DIFFICULTY; IV SITE APPEARS HEATLHY. CALL LIGHT WITHIN REACH.
--- NOTE | 2019-04-24 00:30 | NUR ---
POSSIBLE RHYTHM CHANGE NOTED ON JEWELRY INSPECTOR WHEN COMPARED TO ADMISSION EKG; RT AT BEDSIDE FOR ANOTHER EKG TO COMPARE; NO NOTED CHANGES. PT HAS NO COMPLAINTS OR REQUESTS AT THIS TIME. NO CHANGES IN CONDITION.
--- NOTE | 2019-04-24 02:00 | NUR ---
PT ASLEEP WITH NO SIGNS OF DISTRESS. RESTING ON RIGHT SIDE. USES CALL LIGHT PRN FOR ASSISTANCE WITH URINAL. CALL LIGHT WITHIN REACH.
--- NOTE | 2019-04-24 05:10 | NUR ---
LAB AT BEDSIDE.
[2019-04-24 05:56] LABS: INTERNATIONAL NORMALIZED RATIO 1.4 RATIO (0.7-1.3); PROTHROMBIN TIME 14.4 SECONDS (9.0-12.5)
[2019-04-24 06:04] LABS: ANION GAP 10 (6-22 (CALC)); BUN 21 mg/dL (8-23); BUN/CREATININE RATIO 20 (12-20 (CALC)); CARBON DIOXIDE 28 mmol/l (22-30); CHLORIDE 100 mmol/l (95-108); CREATININE 1.1 mg/dL (0.7-1.3); GFR > 60 ML/MIN (>=60 (CALC)); GFR FOR AFR.AMER. > 60 ML/MIN (>=60 (CALC)); SODIUM 134 mmol/l (137-146)
[2019-04-24 06:11] LABS: HEMATOCRIT 38.5 % (39.0-50.0); HEMOGLOBIN 12.2 g/dl (14.0-18.0); MEAN CELL VOLUME 99.2 fL CALC (80.0-100.0); MEAN CORPUSCULAR HGB 31.4 pG CALC (26.0-32.0); MEAN CORPUSCULAR HGB CONC 31.7 g/L CALC (32.0-36.0); RED BLOOD COUNT 3.88 mill/uL (4.70-6.10); RED CELL DISTRI WIDTH 14.8 % (11.5-15.5)
--- NOTE | 2019-04-24 09:55 | NUR ---
LEXI LAZCANO, @BEDSIDE WITH PT/FAMILY
--- NOTE | 2019-04-24 10:51 | NUR ---
PT SLEEPING IN BED. NO S/S OF DISTRESS AT THIS TIME. WILL CONTINUE TO MONITOR.
--- NOTE | 2019-04-24 12:20 | NUR ---
DR DEL TORO & JALEESA ELLIOTT, @BEDSIDE WITH PT/FAMILY
[2019-04-24] MEDS ORDERED: COUMADIN5 MG PO (14:31)
[2019-04-24] MEDS ORDERED: AMOXICILLIN/CL875 MG PO (14:34)
--- NOTE | 2019-04-24 14:51 | NUR ---
CASE MANAGEMENT @BEDSIDE. PT WOULD LIKE TO KEEP [facility] UPON DC.
--- NOTE | 2019-04-24 15:30 | NUR ---
IV DC'D x2. TIP INTACT. DRESSING APPLIED.
--- NOTE | 2019-04-24 15:42 | NUR ---
PT EDUCATED ON DC INSTRUCTIONS, INCLUDING RX x1, HOME HEALTH & LAB APPT. VERBALIZED UNDERSTANDING.
--- NOTE | 2019-04-24 16:01 | NUR ---
DC PENDING PTS BROTHER TO FOREIGN BROADCAST SPECIALIST PT.
--- NOTE | 2019-04-24 16:09 | NUR ---
PT OUT THE DOOR WITH HOUSE SUP BY WC, WITH ALL BELONGINGS, IN STABLE CONDITION.
[2020-06-06] MEDS ORDERED: SERTRALINE HCL100 MG PO (08:42)
== END 2019-04-24 16:09 | DRG 193 ==
LOC: ED 16:36 → ED-I 19:34 → ED 19:51 → ICU 19:52
PROVIDERS: Family Medicine; Internal Medicine; Nurse Practitioner Family; ADMIT Internal Medicine; ATTEND Internal Medicine
DX: J18.9 Pneumonia, unspecified organism (principal); I50.23 Acute on chronic systolic (congestive) heart failure; I11.0 Hypertensive heart disease with heart failure; I95.9 Hypotension, unspecified; E11.40 Type 2 diabetes mellitus with diabetic neuropathy, unspecified; I48.91 Unspecified atrial fibrillation; I25.10 Atherosclerotic heart disease of native coronary artery without angina pectoris; R79.1 Abnormal coagulation profile; E78.5 Hyperlipidemia, unspecified; H40.9 Unspecified glaucoma; H54.61 Unqualified visual loss, right eye, normal vision left eye; T36.95XA Adverse effect of unspecified systemic antibiotic, initial encounter; F17.210 Nicotine dependence, cigarettes, uncomplicated; Z79.84 Long term (current) use of oral hypoglycemic drugs; Z95.1 Presence of aortocoronary bypass graft; Z79.01 Long term (current) use of anticoagulants
CPT/HCPCS: J3475

== ENCOUNTER 2020-06-06 08:10 | Observation (INO) | payer OTHER, MEDICARE, BC ==
[~2020-06-06] VITALS: Ht 175.3 cm; Wt 107.2 kg
[~2020-06-06 08:10] MED LIST changes: +AMOXICILLIN/CL875 MG PO; +WARFARIN5 MG PO
--- NOTE | 2020-06-06 08:22 | NUR ---
REPORT FROM DEBURRING TECHNICIAN, DAUGHTER TO FOLLOW IN SEPARATE CAR, WILL BE BROUGHT TO PATIENT ON ARRIVAL.
[2020-06-06] MEDS ORDERED: FOLIC ACID1 MG PO (08:39)
[2020-06-06] MEDS ORDERED: XARELTO20 MG PO (08:41)
[2020-06-06] MEDS ORDERED: SERTRALINE HCL50 MG PO (08:42)
--- NOTE | 2020-06-06 09:03 | NUR ---
PORTABLE CXR IN PROGRESS
[2020-06-06 09:37] LABS: HEMATOCRIT 48.8 % (39.0-50.0); HEMOGLOBIN 15.4 g/dl (14.0-18.0); IMMATURE GRANULOCYTES 0.4 % (0.0-5.0); MEAN CELL VOLUME 104.7 fL CALC (80.0-100.0); MEAN CORPUSCULAR HGB CONC 31.6 g/dL CAL (32.0-36.0); NEUT# 7.04 thou/uL (1.82-7.42); RED BLOOD COUNT 4.66 mill/uL (4.70-6.10); RED CELL DISTRI WIDTH 14.4 % (11.5-15.5)
[2020-06-06 09:58] LABS: ALBUMIN 4.2 g/dL (3.2-5.0); ALKALINE PHOSPHATASE 79 u/l (38-126); ANION GAP 16 (6-22 (CALC)); BILIRUBIN, TOTAL 1.2 mg/dL (0.0-1.4); BUN 36 mg/dL (8-23); BUN/CREATININE RATIO 26 (12-20 (CALC)); CARBON DIOXIDE 22 mmol/l (22-30); CHLORIDE 102 mmol/l (95-108); CREATININE 1.4 mg/dL (0.7-1.3); GFR 50 ML/MIN (>=60 (CALC)); GFR FOR AFR.AMER. 60 ML/MIN (>=60 (CALC)); POTASSIUM 4.5 mmol/l (3.5-5.1); SGOT/AST 26 u/l (19-48); SODIUM 135 mmol/l (137-146)
[2020-06-06 10:09] LABS: MYOGLOBIN 99 ng/mL (0 - 121)
--- NOTE | 2020-06-06 10:35 | NUR ---
DR UMAÑA CURRENTLY BEDSIDE WITH PATIENT TO DISCUSSE PPOC AND ANSWER QUESTIONS
--- NOTE | 2020-06-06 10:40 | NUR ---
SWABS SENT TO LAB
--- NOTE | 2020-06-06 12:37 | NUR ---
PORTABLE TELE PLACED ON PATIENT
--- NOTE | 2020-06-06 12:56 | NUR ---
REPORT CALLED TO FLOOR
--- NOTE | 2020-06-06 13:15 | NUR ---
PT ARRIVED TO [facility] FLOOR ROOM #262 VIA STRETCHER ACCOMPANIED BY NURSE GOMEZ AND TREATING ENGINEER STUDENT;PT AMBULATED WITH ASSISTANCE TO BED;PT IS A&O X3;PT REPORTS SEVERE PAIN IN RT ELBOW UPON TOUCH OR MOVEMENT;SLING WAS PLACED TO HELP OFFSET PRESSURE AND PAIN;URINE WAS OBTAINED WELL;ASSESSMENT WAS COMPLETED AT THIS TIME;#22G IV IN [place] IS RUNNING NS @150ML/HR AT THIS TIME;TELE IS IN PLACE;VS WERE OBTAINED AND WITHIN NORMAL LIMITS;ALLERGY AND FALL BANDS WERE APPLIED TO PT;SAFETY PRECAUTIONS IN PLACE;PT ORIENTED TO ROOM, CALL LIGHT AND BED;CALL LIGHT WITHIN REACH;BED IN LOWEST POSITION;WILL CONTINUE TO MONITOR.
[2020-06-06 13:25] VITALS: BP 102/55
[2020-06-06 13:34] LABS: URINE BILIRUBIN - DIPSTICK NEGATIVE (NEGATIVE); URINE BLOOD DIPSTICK NEGATIVE (NEGATIVE); URINE COLOR YELLOW; URINE GLUCOSE - DIPSTICK >=1000 mg/dL (NEGATIVE); URINE KETONE NEGATIVE (NEGATIVE); URINE LEUK ESTERASE NEGATIVE (NEGATIVE); URINE NITRITE - DIPSTICK NEGATIVE (Negative); URINE PROTEIN - DIPSTICK NEGATIVE (NEG-TRACE); URINE UROBILINOGEN - DIPSTICK 0.2 E.U./dL (0.2)
[2020-06-06] MEDS ORDERED: GABAPENTIN600 MG PO (13:45)
[2020-06-06] MEDS ORDERED: BETIMOL0.5 % OU (13:46)
[2020-06-06] MEDS ORDERED: JARDIANCE10 MG PO (13:47)
[2020-06-06] MEDS ORDERED: FUROSEMIDE20 MG PO (13:47)
[2020-06-06] MEDS ORDERED: TRAMADOL HCL50 MG PO (13:48)
[2020-06-06 15:20] VITALS: BP 100/48
--- NOTE | 2020-06-06 16:00 | NUR ---
PT WAS FOUND RESTING IN BED;PT IS REPORTING THROBBING PAIN OF 5/10 IN HIS RIGHT ELBOW;PT WAS GIVEN TYLENOL;TELE IN PLACE READING SB @49BPM;#22G IV IN LAC IS RUNNING NS @75ML/HR;IV SITE IS PATENT AND FREE OF COMPLICATIONS AT THIS TIME;SAFETY PRECAUTIONS IN PLACE;CALL LIGHT WITHIN REACH;BED IN LOWEST POSITION;WILL CONTINUE TO MONITOR.
[2020-06-06 19:00] VITALS: BP 110/52
--- NOTE | 2020-06-06 20:03 | NUR ---
PHYSICAL ASSESMENT COMPLETE. PT CURRENTLY DENIES PAIN OR DISCOMFORT. SCHEDULED MEDICATIONS AND PRN MEDICATION ADMINISTERED, SEE E-MAR. PT DENIES ANY NEEDS AT THIS TIME. PLAN OF CARE REVIEWED, PT DENIES QUESTIONS, VERBALIZES UNDERSTANDING. ITEMS WITHIN REACH, BED LOCKED IN LOW POSITION W/ BEDRAILS UP X2. CALL SOLANO WITHIN REACH, AGREES TO CALL PRN.
[2020-06-06 20:34] VITALS: BP 156/79
[2020-06-07] VITALS (9 sets, daily range): BP systolic 94–134; BP diastolic 41–74
--- NOTE | 2020-06-07 00:03 | NUR ---
PT LAYING IN BED WITH EYES CLOSED, APPEARS TO BE SLEEPING, APPEARS COMFORTABLE AND IN NO DISTRESS. RESPIRATIONS REGULAR AND UNLABORED. ITEMS REMAIN WITHIN REACH, CALL SOLANO REMAINS WITHIN REACH. BED REMAINS LOCKED AND IN LOW POSITION WITH BEDRAILS UP X2. WILL CONTINUE TO MONITOR.
--- NOTE | 2020-06-07 00:40 | NUR ---
PT C/O OF RIGHT ARM PAIN. TYLENOL PROVIDED. WILL CONTINUE TO MONITOR.
--- NOTE | 2020-06-07 04:16 | NUR ---
PT RESTING IN BED, NO SIGNS OF DISTRESS NOTED, RESP EVEN AND UNLABORED. PT VOICES NO NEEDS OR COMPLAINTS AT THIS TIME. CALL LIGHT IN REACH, CONTINUE TO MONITOR.
[2020-06-07 04:45] LABS: MEAN CELL VOLUME 103.3 fL CALC (80.0-100.0); MEAN CORPUSCULAR HGB 33.5 pG CALC (26.0-32.0); MEAN CORPUSCULAR HGB CONC 32.4 g/dL CAL (32.0-36.0); RED BLOOD COUNT 3.97 mill/uL (4.70-6.10); RED CELL DISTRI WIDTH 14.2 % (11.5-15.5)
[2020-06-07 04:51] LABS: HEMOGLOBIN 13.3 g/dl (14.0-18.0)
[2020-06-07 05:13] LABS: CHOLESTEROL HDL RATIO 3.6 (<4.4 (CALC)); CREATININE 1.6 mg/dL (0.7-1.3); MAGNESIUM 2.1 mg/dL (1.6-2.3); POTASSIUM 4.1 mmol/l (3.5-5.1)
--- NOTE | 2020-06-07 07:00 | NUR ---
PT REPORT RECEIVED FROM NIGHT NURSELUIS.
--- NOTE | 2020-06-07 08:00 | NUR ---
PT WAS FOUND RESTING IN BED IN SUPINE POSITION;PT IS A&O X3;PT REPORTS NO PAIN AT THIS TIME;HEART SOUNDS ARE REGULAR IN RATE AND RHYTHM, PACED;LUNG SOUNDS ARE CLEAR TO ASCULTATION;RESPIRATIONS ARE EVEN AND UNLABORED ON RA;#22G IV IN LAC IS RUNNING NS @75 ML/HR;IV SITE IS PATENT AND FREE OF COMPLICATIONS AT THIS TIME;SAFETY PRECAUTIONS IN PLACE;CALL LIGHT WITHIN REACH;BED IN LOWEST POSITION;WILL CONTINUE TO MONITOR.
--- NOTE | 2020-06-07 08:53 | NUR ---
AND LEXI SLAUGHTER AT BEDSIDE DISCUSSING POC
--- NOTE | 2020-06-07 12:00 | NUR ---
PT WAS FOUND RESTING IN BED;PT IS ALERT AND ORIENTED;#22G IV IN LAC IS RUNNING NS @75 ML/HR;IV SITE IS PATENT AND FREE OF COMPLICATIONS;SAFETY PRECAUTIONS IN PLACE;CALL LIGHT WITHIN REACH;BED IN LOWEST POSITION;WILL CONTINUE TO MONITOR.
--- NOTE | 2020-06-07 16:00 | NUR ---
PT WAS FOUND SLEEPING IN BED ON HIS SIDE;PT HAS NO REPORTS OF PAIN AT THIS TIME;#22G IV IN LAC IS RUNNING NS @75 ML/HR;IV SITE IS PATENT AND FREE OF COMPLICATIONS AT THIS TIME;SAFETY PRECAUTIONS IN PLACE;CALL LIGHT WITHIN REACH;BED IN LOWEST POSITION;WILL CONTINUE TO MONITOR.
[2020-06-08 04:02] VITALS: BP 127/61
--- NOTE | 2020-06-08 04:19 | NUR ---
T RESTING IN BED, NO SIGNS OF DISTRESS NOTED, RESP EVEN AND UNLABORED. PT OICES NO NEEDS OR COMPLAINTS AT THIS TIME. CALL LIGHT IN REACH, CONTINUE TO ONITOR.
[2020-06-08 05:11] LABS: HEMATOCRIT 41.2 % (39.0-50.0); HEMOGLOBIN 13.3 g/dl (14.0-18.0); MEAN CELL VOLUME 103.3 fL CALC (80.0-100.0); MEAN CORPUSCULAR HGB 33.3 pG CALC (26.0-32.0); MEAN CORPUSCULAR HGB CONC 32.3 g/dL CAL (32.0-36.0); RED BLOOD COUNT 3.99 mill/uL (4.70-6.10); RED CELL DISTRI WIDTH 13.8 % (11.5-15.5)
[2020-06-08 05:35] LABS: ANION GAP 9 (6-22 (CALC)); BUN 43 mg/dL (8-23); BUN/CREATININE RATIO 32 (12-20 (CALC)); CARBON DIOXIDE 23 mmol/l (22-30); CHLORIDE 107 mmol/l (95-108); CREATININE 1.3 mg/dL (0.7-1.3); GFR 54 ML/MIN (>=60 (CALC)); GFR FOR AFR.AMER. > 60 ML/MIN (>=60 (CALC)); MAGNESIUM 2.3 mg/dL (1.6-2.3); POTASSIUM 4.1 mmol/l (3.5-5.1); SODIUM 135 mmol/l (137-146)
[2020-06-08 07:41] VITALS: BP 108/57
--- NOTE | 2020-06-08 08:01 | NUR ---
PT SITTING ON THE SIDE OF THE BED EATING BREAKFAST. A&O X3. NO DISTRESS NOTED. PT DENIES ANY PAIN AT THIS TIME. CLEAR/DIMINISHED BREATH SOUNDS HEARD UPON AUSCULTATION. TRACE EDEMA NOTED TO BLE. IVF INFUSING PER MAR ORDERS TO #22 LAC. NO NEEDS AT THIS TIME. ASSESSMENT COMPLETED. DISCUSSED POC. CALL LIGHT LEFT WITHIN REACH.
--- NOTE | 2020-06-08 10:27 | NUR ---
PT SLEEPING IN BED. NO DISTRESS NOTED. CALL LIGHT WITHIN REACH.
[2020-06-08] MEDS ORDERED: AMOX/K CLAV875 M1 PO (10:29)
[2020-06-08] MEDS ORDERED: MEDDOSEPAK PO (10:29)
[2020-06-08 10:48] VITALS: BP 106/54
--- NOTE | 2020-06-08 11:57 | NUR ---
D/C INSTRUCTIONS GIVEN TO PT. PT VERBALIZED UNDERSTANDING. IV INTACT UPON REMOVAL.
--- NOTE | 2020-06-08 12:02 | NUR ---
Discharge instructions given. Patient verbalizes understanding of same. Discharged in stable condition via wheelchair to home with accompanied by staff. Pt encouraged to return if new or worsening symptoms arise. Home medication (Entresto) given.All belongings sent with pt.
--- NOTE | 2020-06-11 10:35 | NUR ---
Pneumonia follow up call completed today, 06/11/20. Pt. states he is doing really well, "like a new man". Medication prescribed at discharge was obtained and is being taken without issue. Pt. states he will call today to schedule a follow up appt. with his PCP. No questions or concerns voiced by patient.
== END 2020-06-08 12:02 | disposition home or self-care (01) | DRG 195 ==
LOC: ED 08:10 → ED-I 11:45 → ED 12:16 → MS2 12:17
PROVIDERS: Emergency Medicine; Nurse Practitioner; ADMIT Internal Medicine; ATTEND Internal Medicine
DX: J18.9 Pneumonia, unspecified organism (principal); I95.9 Hypotension, unspecified; M19.021 Primary osteoarthritis, right elbow; I10 Essential (primary) hypertension; E11.40 Type 2 diabetes mellitus with diabetic neuropathy, unspecified; I48.91 Unspecified atrial fibrillation; E78.5 Hyperlipidemia, unspecified; I25.10 Atherosclerotic heart disease of native coronary artery without angina pectoris; H40.9 Unspecified glaucoma; H54.61 Unqualified visual loss, right eye, normal vision left eye; F17.210 Nicotine dependence, cigarettes, uncomplicated; Z95.1 Presence of aortocoronary bypass graft; Z79.84 Long term (current) use of oral hypoglycemic drugs; Z20.822 Contact with and (suspected) exposure to COVID-19

== ENCOUNTER 2020-06-13 14:50 | Observation (INO) | payer OTHER, MEDICARE, BC ==
[~2020-06-13] VITALS: Ht 175.3 cm; Wt 104.0 kg
[~2020-06-13 14:50] MED LIST changes: +AMOX/K CLAV875 M1 PO; +BETIMOL0.5 % OU; +FOLIC ACID1 MG PO; +FUROSEMIDE20 MG PO; +GABAPENTIN600 MG PO; +JARDIANCE10 MG PO; +MEDDOSEPAK PO; +SERTRALINE HCL50 MG PO; +XARELTO20 MG PO
--- NOTE | 2020-06-13 14:50 | NUR ---
PT TO ROOM VIA EMS. BEDSIDE TRAIGE COMPLETED
[2020-06-13 15:10] LABS: HEMOGLOBIN 14.5 g/dl (14.0-18.0); IMMATURE GRANULOCYTES 0.7 % (0.0-5.0); MEAN CELL VOLUME 101.6 fL CALC (80.0-100.0); MEAN CORPUSCULAR HGB 33.5 pG CALC (26.0-32.0); NEUT# 8.44 thou/uL (1.82-7.42); RED BLOOD COUNT 4.33 mill/uL (4.70-6.10); RED CELL DISTRI WIDTH 13.8 % (11.5-15.5)
[2020-06-13 15:24] LABS: ALBUMIN 3.8 g/dL (3.2-5.0); ALKALINE PHOSPHATASE 104 u/l (38-126); ANION GAP 12 (6-22 (CALC)); BUN 39 mg/dL (8-23); BUN/CREATININE RATIO 31 (12-20 (CALC)); CARBON DIOXIDE 26 mmol/l (22-30); CHLORIDE 101 mmol/l (95-108); CREATININE 1.3 mg/dL (0.7-1.3); GFR 54 ML/MIN (>=60 (CALC)); GFR FOR AFR.AMER. > 60 ML/MIN (>=60 (CALC)); POTASSIUM 4.2 mmol/l (3.5-5.1); SGOT/AST 26 u/l (19-48); SODIUM 135 mmol/l (137-146); TOTAL PROTEIN 7.4 g/dL (6.3-8.2)
[2020-06-13 15:29] LABS: BILIRUBIN, TOTAL 0.6 mg/dL (0.0-1.4)
--- NOTE | 2020-06-13 15:47 | NUR ---
DAUGHTER CURRENTLY BEDSIDE WITH PATIENT
[2020-06-13 16:49] LABS: URINE BILIRUBIN - DIPSTICK NEGATIVE (NEGATIVE); URINE BLOOD DIPSTICK NEGATIVE (NEGATIVE); URINE COLOR YELLOW; URINE GLUCOSE - DIPSTICK >=1000 mg/dL (NEGATIVE); URINE KETONE NEGATIVE (NEGATIVE); URINE LEUK ESTERASE NEGATIVE (NEGATIVE); URINE PROTEIN - DIPSTICK NEGATIVE (NEG-TRACE); URINE UROBILINOGEN - DIPSTICK 0.2 E.U./dL (0.2)
[2020-06-13 16:50] LABS: URINE NITRITE - DIPSTICK NEGATIVE (Negative)
--- NOTE | 2020-06-13 17:32 | NUR ---
REPORT CALLED TO SHAILESH
[2020-06-13 17:50] VITALS: BP 126/59
[2020-06-13 18:42] VITALS: BP 107/59
--- NOTE | 2020-06-13 19:02 | NUR ---
74 YEAR OLD MALE ADMITTED TO MED SURG UNIT FROM ER. ALERT AND ORIENTED.DX OF CHEST PAIN. PT WEARS GLASSES AT TIME, HX OF GLAUCOMA. WEARS UPPER DENTURES, LIVES ALONE AND HAS EXTENSIVE MEDICAL HX. DENIES PAIN AT THIS TIME. ORIENTED TO CALL LIGHT USE AND BELONGINGS WITHIN REACH.
--- NOTE | 2020-06-13 19:35 | NUR ---
PT WAS SLEEPING, BUT AWOKE TO MY VOICE. LIGHTS AND TV ARE ON. ASSESSMENT COMPLETED AT THIS TIME. PT DENIES CP/N/V/SOB OR ANY OTHER DISTRESSES AT THIS TIME. REPORTS THAT HE WILL NEED ASSISTANCE USING URINAL OR USING RESTROOM, HE STATED THAT "I PEE OUTSIDE USUALLY." I ENCOURAGED HIM TO CALL HE NEEDS ASSISTANCE WITH URINAL. URINAL IS PROVIDED AT BEDSIDE, BUT HE STATES HE WILL STILL NEED ASSISTANCE. CALL LIGHT SYSTEM REVIEWED WITH PT, VERBALIZED UNDERSTANDING. MED REQ HAS NOT BEEN COMPLETED, I ATTEMPTED TO COMPLETE THIS, BUT HE DENIED KNOWING WHAT HE TAKES WHEN, HE ASKED ME TO CALL HIS DAUGHTER WITH THIS NEED. PT ASKED FOR SOMETHING TO HELP HIM SLEEP, REQUEST TO PHYSICIAN MADE.
--- NOTE | 2020-06-13 22:07 | NUR ---
PT MEDICATED ORDERS PROVIDE AND WITH SLEEP AIDE. ASSISTED PT STAND AT SIDE OF THE BED TO USE URINAL AND BACK TO BED. PT WEAK UPON AMBULATING BUT DID HOLD HIS OWN WEIGHT. 200CC OF CLEAR YELLOW URINE EMPTIED AT THIS TIME. CALL LIGHT AT SIDE AND PT ENCOURAGED TO CALL NEEDS ARISE.
[2020-06-13 23:49] VITALS: BP 106/32
[2020-06-14 03:22] LABS: CHOLESTEROL HDL RATIO 3.6 (<4.4 (CALC)); MAGNESIUM 2.1 mg/dL (1.6-2.3)
[2020-06-14 04:18] VITALS: BP 92/56
[2020-06-14 07:15] VITALS: BP 111/43
--- NOTE | 2020-06-14 07:15 | NUR ---
PATIENT LAYING IN BED AT THIS TIME SPRING UPHOLSTERER DONE SEE INTERVENTIONS. PATIENT DENIES ANY NEEDS. LUNG MACK ARE CLEAR. PATIENT DENEIS ANY PAIN. SIDERAILS ARE UP X 2 CALL LIGTH AND PERSONAL ITEMS WITHIN REACH. TELE MONITOR ON AND BEING MONITORED BY ED.
--- NOTE | 2020-06-14 07:15 | NUR ---
PATIENT IN LAYING IN BED ALERT AND ORIENTED AT THIS TIME. PATIENT DENIES ANY PAIN. ENTRY LEVEL FINANCIAL ANALYST DONE AT THIS TIME. LUNGS SOUNDS ARE CLEAR, LUMBAR PUNCTURE SITE REMAINS DRY AND INTACT PATIENT DENIES ANY HEADACES. SIDERAILS ARE UP X [address] AND BED ALARM IN PL[address] CALL LIGHT IS WITHIN REACH AND PERSONAL ITEMS ARE WIHTIN REACH AT THIS TIME. PATIENT DENEIS ANY OTHER NEEDS.
[2020-06-14 08:37] VITALS: BP 111/43
--- NOTE | 2020-06-14 10:40 | NUR ---
PATIENT D/C AT THIS TIME. AMBERLY VERBALIZES UNDERSTANDING OF D/C INSTRUCTIONS. IV REMOVED CANNULA INTACT. TELE MONITORED REMOVED AND ED ([facility]) NOTIFIED.
--- NOTE | 2020-06-14 10:42 | NUR ---
Discharge instructions given. Patient verbalizes understanding of same. Discharged in stable condition via Wheelchair to Home with father. All belongings sent with pt.
== END 2020-06-14 10:40 | disposition home or self-care (01) | DRG 313 ==
LOC: ED 14:50 → ED-I 16:16 → ED 16:16 → ED-I 16:21 → ED 16:50 → MS2 16:51
PROVIDERS: Family Medicine; ADMIT Internal Medicine; ATTEND Internal Medicine
DX: R07.2 Precordial pain (principal); I10 Essential (primary) hypertension; E11.40 Type 2 diabetes mellitus with diabetic neuropathy, unspecified; I25.10 Atherosclerotic heart disease of native coronary artery without angina pectoris; I48.91 Unspecified atrial fibrillation; E78.5 Hyperlipidemia, unspecified; H40.9 Unspecified glaucoma; H54.61 Unqualified visual loss, right eye, normal vision left eye; F17.200 Nicotine dependence, unspecified, uncomplicated; Z95.0 Presence of cardiac pacemaker; Z95.1 Presence of aortocoronary bypass graft; Z20.822 Contact with and (suspected) exposure to COVID-19

== ENCOUNTER 2020-08-17 09:03 | Emergency (ER) | payer MEDICARE, BC ==
[~2020-08-17] VITALS: Ht 175.3 cm; Wt 85.0 kg
[~2020-08-17 09:03] MED LIST changes: +SERTRALINE HCL100 MG PO; -SERTRALINE HCL50 MG PO
[2020-08-17 10:36] LABS: ALBUMIN 3.4 g/dL (3.2-5.0); BILIRUBIN, TOTAL 0.8 mg/dL (0.0-1.4); CREATININE 1.6 mg/dL (0.7-1.3); POTASSIUM 4.1 mmol/l (3.5-5.1); TOTAL PROTEIN 7.1 g/dL (6.3-8.2)
[2020-08-17 10:41] LABS: HEMATOCRIT 45.1 % (39.0-50.0); HEMOGLOBIN 14.3 g/dl (14.0-18.0); IMMATURE GRANULOCYTES 0.3 % (0.0-5.0); MEAN CELL VOLUME 102.7 fL CALC (80.0-100.0); MEAN CORPUSCULAR HGB 32.6 pG CALC (26.0-32.0); MEAN CORPUSCULAR HGB CONC 31.7 g/dL CAL (32.0-36.0); NEUT# 7.51 thou/uL (1.82-7.42); RED BLOOD COUNT 4.39 mill/uL (4.70-6.10); RED CELL DISTRI WIDTH 13.3 % (11.5-15.5)
[2020-08-17] MEDS ORDERED: LORTAB 1010 MG PO (10:56)
[2020-08-17] MEDS ORDERED: CEPHALEXIN500 MG PO (10:56)
[2020-08-17] MEDS ORDERED: BACTRIM DS1 TAB PO (10:56)
[2020-08-17 11:36] VITALS: BP 130/65
[2020-08-18] MEDS ORDERED: ENTRESTO 24-261 TAB PO (11:40)
== END 2020-08-17 11:38 | disposition home or self-care (01) ==
LOC: ED 09:03
PROVIDERS: Emergency Medicine
PROC: 0H98XZZ Drainage of Buttock Skin, External Approach (ICD-10-PCS; principal; 2020-08-17)
DX: L02.31 Cutaneous abscess of buttock (principal); E11.9 Type 2 diabetes mellitus without complications; I48.91 Unspecified atrial fibrillation; F17.200 Nicotine dependence, unspecified, uncomplicated; Z95.1 Presence of aortocoronary bypass graft

== ENCOUNTER 2020-08-18 11:01 | Observation (INO) | payer OTHER, MEDICARE, BC ==
[~2020-08-18] VITALS: Ht 175.3 cm; Wt 105.0 kg
[~2020-08-18 11:01] MED LIST changes: +BACTRIM DS1 TAB PO; +LORTAB 1010 MG PO
--- NOTE | 2020-08-18 11:18 | NUR ---
WHEELED TO THE ROOM
[2020-08-18] MEDS ORDERED: ENTRESTO 24-261 TAB PO (11:40)
--- NOTE | 2020-08-18 12:10 | NUR ---
VERBAL CONSENT OBTAINED FROM PT FOR INCISION AND DRAINAGE AND WRITTEN CONSENT OBTAINED FROM GRAND DAUGHTER PER PT REQUEST
--- NOTE | 2020-08-18 12:45 | NUR ---
PT MOVED TO ROOM # 16 FOR HIGHER LEVEL OF CARE. REPORT GIVEN TO AMBAR NEAL
[2020-08-18 13:26] LABS: HEMATOCRIT 48.6 % (39.0-50.0); IMMATURE GRANULOCYTES 0.4 % (0.0-5.0); MEAN CELL VOLUME 100.2 fL CALC (80.0-100.0); MEAN CORPUSCULAR HGB CONC 32.9 g/dL CAL (32.0-36.0); NEUT# 6.94 thou/uL (1.82-7.42); RED BLOOD COUNT 4.85 mill/uL (4.70-6.10); RED CELL DISTRI WIDTH 13.4 % (11.5-15.5)
[2020-08-18 13:50] LABS: ALBUMIN 3.9 g/dL (3.2-5.0); BILIRUBIN, TOTAL 0.8 mg/dL (0.0-1.4); POTASSIUM 4.1 mmol/l (3.5-5.1); TOTAL PROTEIN 8.4 g/dL (6.3-8.2)
--- NOTE | 2020-08-18 13:54 | NUR ---
PT WAS IN W/C BY CHOICE BECAUSE OF BACK ISSUES AND AFTER CHANGING HIM AND STARTING ANTIBIOTICS HE WAS TRANSFERED INTO BED AND REPOSITIONED. BLANKET PROVIDED
--- NOTE | 2020-08-18 14:50 | NUR ---
PT STARTED ON GASTROGRAFIN AND BENEDRYL GIVEN TO PRETREAT FOR ALLERGY. PT IS TOLERATING WELL AT THIS TIME. MOY IS AT BEDSIDE
--- NOTE | 2020-08-18 15:30 | NUR ---
PT RESTING WITH ANTIBIOTICS FLOWING INTO PATENT IV. DAUGHTER AT BEDSIDE
--- NOTE | 2020-08-18 16:30 | NUR ---
PT DISCONNECTED FROM FLUIDS AND MONITOR FOR TRIP TO CT
--- NOTE | 2020-08-18 17:00 | NUR ---
PT RECONNCECTED TO MONITORING EQUIPMENT. DENIES ANY NEEDS
--- NOTE | 2020-08-18 18:25 | NUR ---
PT RESTING WITH EYES CLOSED. LIGHTS DIMMED FOR COMFORT
--- NOTE | 2020-08-18 19:01 | NUR ---
RECEIVED REPORT FROM ÁNGEL, ASSUMED CARE OF PATIENT.
--- NOTE | 2020-08-18 19:48 | NUR ---
Admission Note Report Given to: LUCIEN Transported by: Wheelchair X Stretcher Transported with: X Nurse Transporter X Patent IV O2 X Senior Product Engineer Location: ICU X MS2
[2020-08-18 19:50] VITALS: BP 99/50
--- NOTE | 2020-08-18 20:34 | NUR ---
PATIENT ADMITTED FROM ER VIA STRETCHER WITH ER STAFF IN ATTENDANCE. PATIENT ASSISTED FROM STRETCHER TO THE BED-UNSTEADY ON HIS FEET-STATES THAT HE DOES HAVE WALKER THAT HE USES AT HOME. PATIENT IS AWAKE ALERT AND ORIENTEDX3. ADMITTED FOR LEFT GLUTEAL ABCESS-DRESSING TO LEFT BUTTOCKS INTACT WITH MODERATE AMT OF DRAINAGE NOTED. MEDICATED FOR PAIN WITH LORTAB ORDERED. PATIENT WITH HISTORY OF [id number] WAS 112. PATIENT STATES THAT HE HAD DINNER IN ER. ASSISTED TO BSC TO VOID QS YELLOW URINE. ASSISTED BACK TO BED. TELE MONITOR IN PLACE WITH READING OF PACED AT 49. SALINE LOCK TO RAC INTACT AND HEALTHY AT THIS TIME. IVF NS HUNG AND TO INFUSE AT 100CC/HR. FLAGYL HUNG ORDERED. ORIENTED PATIENT TO ROOM AND SURROUNDINGS. INSTRUCTED ON U SE OF NURSE CALL LIGHT SYSTEM, TV REMOTE AND PHONE. SAFETY PRECAUTIONS REINFORCED. CALL LIGHT IN REACH. WILL CONT TO MONITOR.
[2020-08-19] VITALS (7 sets, daily range): BP systolic 86–114; BP diastolic 39–54
--- NOTE | 2020-08-19 00:17 | NUR ---
PATIENT ASSISTED OOB TO BSC TO VOID 200CC OF YELLOW URINE. BACK TO BED. IVF PATENT AND INFUSING VIA RAC SITE. TELE MONITOR IN PLACE. BP IS LOW-WILL CONT TO MONITOR. CALL LIGHT IN REACH.
--- NOTE | 2020-08-19 00:52 | NUR ---
RESTING IN BED APPEARS SLEEPING WITH EYES CLOSED. BP RECHECKED AND 90/50 AT THIS TIME. IVF PATENT AND INFUSING VIA RAC SITE AT 100CC/HR. TELE MONITOR IN PLACE. CALL LIGHT IN REACH. WILL CONT TO MONITOR.
--- NOTE | 2020-08-19 04:26 | NUR ---
PATIENT ASSISTED UP TO THE BR TO VOID AGAIN-STILL UNSTEADY ON HIS FEET. BACK TO BED. BP STILL ON THE LOW SIDE-PATIENT IS AYMPTOMATIC AT THIS TIME. IVF PATENT AND INFUSING VIA RAC SITE AT 100CC/HR. SITE REMAINS HEALTHY. TELE MONITOR IN PLACE. LAST TELE READING WAS PACED AT 50. SAFETY PRECAUTIONS REINFORCED. CALL LIGHT IN REACH. WILL CONT TO MONITOR.
[2020-08-19 05:14] LABS: MEAN CORPUSCULAR HGB CONC 31.7 g/dL CAL (32.0-36.0); RED BLOOD COUNT 3.87 mill/uL (4.70-6.10); RED CELL DISTRI WIDTH 13.5 % (11.5-15.5)
[2020-08-19 05:15] LABS: HEMATOCRIT 39.1 % (39.0-50.0); HEMOGLOBIN 12.4 g/dl (14.0-18.0)
[2020-08-19 05:33] LABS: CREATININE 1.6 mg/dL (0.7-1.3); POTASSIUM 3.8 mmol/l (3.5-5.1)
[2020-08-19 05:36] LABS: ALBUMIN 2.3 g/dL (3.2-5.0); BILIRUBIN, TOTAL 0.3 mg/dL (0.0-1.4)
--- NOTE | 2020-08-19 07:05 | NUR ---
REPORT RECEIVED FROM AMBAR MCGRAW
--- NOTE | 2020-08-19 07:45 | NUR ---
PT RESTING IN SEMI FOWLERS POSITION,A&O X3;VS OBTAINED AND ASSESSMENT COMPLETED, BP 87/40 PT REPORTS HIS BP TYPICALLY RUNS ON THE LOWER SIDE;PT DENIES ANY CURRENT PAIN OR DISCOMFORTS,PAIN SCALE AND REPORTING EDUCATED;RESPIRATIONS EVEN AND UNLABORED ON RA,CLEAR LUNG SOUNDS;ABDOMEN SOFT ON PALPATION AND ACTIVE IN ALL 4 QUADRANTS;STRONG PEDAL PULSE;DRESSING TO LEFT BUTTOCK REMAINS CDI AT THIS TIME;TELE MONITORING IN PLACE;#20G TO RAC INFUSING NS @ 100ML/HR,SITE APPEARS HEALTHY;ACCUCHECK 155, PT COVERED WITH SLIDING SCALE INSULIN PER ORDER;PT DENIES ANY ADDITIONAL NEEDS AT THIS TIME AND IS ENCOURAGED TO CALL FOR ASSISTANCE IF NEEDED;FALL PRECAUTIONS IN PLACE WITH BED IN THE LOWEST POSITION AND CALL LIGHT IN REACH;WILL CONTINUE TO MONITOR
--- NOTE | 2020-08-19 10:13 | NUR ---
NOTIFIED OF CONSULT VIA PHONE BY
--- NOTE | 2020-08-19 10:34 | NUR ---
AT BEDSIDE DISCUSSING POC WITH PT.
--- NOTE | 2020-08-19 11:10 | NUR ---
PT RESTING IN SEMI FOWLERS POSITION;RESPIRATIONS EVEN AND UNLABORED ON RA;PT DENIES ANY CURRENT PAIN OR NEEDS;IV SITE PATENT INFUSING NS WITH EASE PER ORDER;TELE MONITORING IN PLACE;ACCUCHECK 221, PT COVERED WITH SLIDING SCALE INSULIN PER ORDER;PT DENIES ANY ADDITIONAL NEEDS;ENCOURAGED TO CALL FOR ASSISTANCE IF NEEDED;FALL PRECAUTIONS IN PLACE WITH BED IN THE LOWEST POSITION AND CALL LIGHT IN REACH;WILL CONTINUE TO MONITOR
--- NOTE | 2020-08-19 13:49 | NUR ---
DAUGHTER AT BEDSIDE
--- NOTE | 2020-08-19 14:34 | NUR ---
PT IS A 74 YR OLD MALE WHO PRESENTS WITH ABSCESS/CELLULITIS. ALL MEDS IN PTS CHART WERE REVIEWED. VANCOMYCIN ORDERED FOR PHARMACY TO DOSE. T = 97.1 F, WBC = 8.5 THOUS/UL, SCR = 1.6 MG/DL, CRCL = 60.2 ML/MIN, WT = 105 KG, HT = 69'. PT IS ALSO ON CEFEPIME 2G IV Q12H AND FLAGYL 500MG IV Q8H. START VANCOMYCIN 1G IV Q12H @ 0800 AND 2000. DRAW TROUGH 30 MIN BEFORE 4TH DOSE ON 08/20 @ 1930. GOAL TROUGH = 10-15 MCG/ML. PHARMACY WILL FOLLOW AND ADVISE NEEDED.
--- NOTE | 2020-08-19 15:25 | NUR ---
PT RESTING IN SEMI FOWLERS POSITION WATCHING TV;RESPIRATIONS EVEN AND UNLABORED ON RA;PT DENIES ANY CURRENT PAIN OR DISCOMFORTS;TELE MONITORING IN PLACE;IV SITE PATENT INFUSING NS WITH EASE PER ORDER;DRESSING TO LEFT BUTTOCK CDI;PT DENIES ANY ADDITIONAL NEEDS AND IS ENCOURAGED TO CALL FOR ASSISTANCE IF NEEDED;FALL PRECAUTIONS IN PLACE WITH BED IN THE LOWEST POSITION AND CALL LIGHT IN REACH;WILL CONTINUE TO MONITOR
--- NOTE | 2020-08-19 18:50 | NUR ---
REPORT RECEIVED FROM Adalberto RENNER LPN, CARE OF PT ASSUMED AT THIS TIME.
--- NOTE | 2020-08-19 19:05 | NUR ---
PT ASSISTED UP TO BSC AND BACK TO BED. COMMODE EMPTIED OF URINE MIXED WITH LIQUID STOOL. RADHA-CARE COMPLETED. L-BUTTOCK DRESSING REMAINS INTACT. SEROSANGUINOUS DRAINAGE NOTED TO BED PAD AND BED SHEET. PARTIAL LINEN CHANGE COMPLETE.
--- NOTE | 2020-08-19 19:30 | NUR ---
PHYSICAL ASSESMENT COMPLETE, PT LAYING ON HIS SIDE TO AVOID APPLYING PRESSURE TO BUTTOCK. DRESSING TO LEFT INTERGLUTEAL CLEFT INTACT AND SOILED WITH SEROUSANGUINOUS DRAINAGE. R-AC #20G PATENT AND INFUSING 0.9%NACL @ 100ML/H. TELE #[id number] ON PT. PT DENIES NEEDS AT THIS TIME WHEN ASKED. PLAN OF CARE REVIEWED, PT VERBALIZES UNDERSTANDING. CALL SOLANO WITHIN REACH, AGREES TO CALL PRN. BED LOCKED IN LOW POSITION WITH BEDRAILS UP X2.
--- NOTE | 2020-08-19 19:31 | NUR ---
ORDER FOR VANCO TROUGH ON 08/20 @ 1930 RECEIVED FROM RX.
--- NOTE | 2020-08-19 20:24 | NUR ---
REPORTED BY Alix COUGHLIN REHABILITATION TEACHER, FINGERSTICK GLUCOSE 183mg/dl.
--- NOTE | 2020-08-19 20:50 | NUR ---
EDUCATION PROVIDED ON PRESCRIBED IV ABX AND PRN LORTAB. PT VERBALIZES UNDERSTANDING. SCHEDULED MEDICATIONS ADMINISTERED AND PRN LORTAB ADMINISTERED FOR THROBBING PAIN TO LEFT BUTTOCK @ I&D INCISION. SEE E-MAY.
--- NOTE | 2020-08-19 21:30 | NUR ---
DRY DRESSING OVER L-BITTOCK I&D SITE SOILED. DRESSING REMOVED. RADHA-WOUND AREA CLEANSED AND PATTED DRY. PACKING REMAINS IN PLACE, WILL LEAVE INTACT UNTIL EVALUATED BY SURGICAL CONSULT ON 08/20 AND FURTHER ORDERS RECEIVED. FOLDED 4X4S PLACED OVER AREA AND SECURED WITH SILK TAPE.
--- NOTE | 2020-08-19 21:30 | NUR ---
F/U PAIN LEVEL REPORTS 0/10.
[2020-08-20] VITALS: BP 106/56
--- NOTE | 2020-08-20 01:30 | NUR ---
PT APPEARS TO BE SLEEPING COMFORTABLY, LAYING IN BED WITH EYES CLOSED, RESPIRATIONS REGUALR AND UNLABORED. NO APPARENT DISTRESS OR DISCOMFORT. CALL SOLANO REMAINS WITHIN REACH.
[2020-08-20 04:00] VITALS: BP 119/50
--- NOTE | 2020-08-20 05:17 | NUR ---
Dann BAUM DUMP WORKER AT BEDSIDE COLLECTING AM LABS.
[2020-08-20 05:48] LABS: HEMATOCRIT 39.1 % (39.0-50.0); HEMOGLOBIN 12.5 g/dl (14.0-18.0); IMMATURE GRANULOCYTES 0.5 % (0.0-5.0); MEAN CELL VOLUME 101.8 fL CALC (80.0-100.0); MEAN CORPUSCULAR HGB 32.6 pG CALC (26.0-32.0); NEUT# 5.06 thou/uL (1.82-7.42); RED BLOOD COUNT 3.84 mill/uL (4.70-6.10); RED CELL DISTRI WIDTH 13.3 % (11.5-15.5)
[2020-08-20 06:04] LABS: ALBUMIN 2.4 g/dL (3.2-5.0); ALKALINE PHOSPHATASE 75 u/l (38-126); ANION GAP 10 (6-22 (CALC)); BILIRUBIN, TOTAL 0.2 mg/dL (0.0-1.4); BUN 32 mg/dL (8-23); BUN/CREATININE RATIO 25 (12-20 (CALC)); CARBON DIOXIDE 23 mmol/l (22-30); CHLORIDE 108 mmol/l (95-108); CREATININE 1.3 mg/dL (0.7-1.3); GFR 54 ML/MIN (>=60 (CALC)); GFR FOR AFR.AMER. > 60 ML/MIN (>=60 (CALC)); POTASSIUM 4.4 mmol/l (3.5-5.1); SGOT/AST 29 u/l (19-48); SODIUM 137 mmol/l (137-146); TOTAL PROTEIN 5.1 g/dL (6.3-8.2)
[2020-08-20 07:26] VITALS: BP 103/49
--- NOTE | 2020-08-20 09:57 | NUR ---
PT IS AWAKE, ALERT, ORIENTED X 3. LUNGS CLEAR, RA. DRESSING TO LEFT GLUTEUS INTACT. DR ESQUIVEL HAS STOPPED BY TO EXAMINE WOUND, STATES PT CAN BE DISCHARGED HOME FROM HIS PERSPECTIVE.
[2020-08-20] MEDS ORDERED: DOXYCYCL HYC100 MG PO (10:58)
--- NOTE | 2020-08-20 11:53 | NUR ---
PT HAS BEEN DISCHARGED TO HOME. PT VERBALIZED UNDERSTANDING OF DC INSTRUCTIONS, TAKEN TO VEHICLE BY WHEELCHAIR. DRESSING WAS CHANGED PRIOR TO PT'S DEPARTURE. PT LEAVES IN STABLE CONDITION.
== END 2020-08-20 11:55 | disposition home health service (06) | DRG 603 ==
LOC: ED 11:01 → ED-I 17:27 → ED 17:40 → MS2 17:41
PROVIDERS: Emergency Medicine; Physician Assistant; ADMIT Internal Medicine; ATTEND Internal Medicine
PROC: 0H98XZZ Drainage of Buttock Skin, External Approach (ICD-10-PCS; principal; 2020-08-18)
DX: L02.31 Cutaneous abscess of buttock (principal); E87.1 Hypo-osmolality and hyponatremia; N17.9 Acute kidney failure, unspecified; I12.9 Hypertensive chronic kidney disease with stage 1 through stage 4 chronic kidney disease, or unspecified chronic kidney disease; E11.22 Type 2 diabetes mellitus with diabetic chronic kidney disease; N18.9 Chronic kidney disease, unspecified; D53.9 Nutritional anemia, unspecified; I48.91 Unspecified atrial fibrillation; I25.10 Atherosclerotic heart disease of native coronary artery without angina pectoris; I95.9 Hypotension, unspecified; E78.5 Hyperlipidemia, unspecified; H40.9 Unspecified glaucoma; H54.61 Unqualified visual loss, right eye, normal vision left eye; M47.819 Spondylosis without myelopathy or radiculopathy, site unspecified; F17.200 Nicotine dependence, unspecified, uncomplicated; Z95.0 Presence of cardiac pacemaker; Z95.1 Presence of aortocoronary bypass graft; Z20.822 Contact with and (suspected) exposure to COVID-19
CPT/HCPCS: G0378; J0692

== ENCOUNTER 2020-09-19 11:31 | Observation (INO) | payer MEDICARE, BC ==
[~2020-09-19] VITALS: Ht 175.3 cm; Wt 100.0 kg
[~2020-09-19 11:31] MED LIST changes: +DOXYCYCL HYC100 MG PO
--- NOTE | 2020-09-19 11:31 | NUR ---
PT ASSISTED TO ROOM VIA W/C
[2020-09-19 12:11] LABS: HEMATOCRIT 49.5 % (39.0-50.0); HEMOGLOBIN 16.3 g/dl (14.0-18.0); IMMATURE GRANULOCYTES 0.2 % (0.0-5.0); MEAN CELL VOLUME 99.8 fL CALC (80.0-100.0); MEAN CORPUSCULAR HGB 32.9 pG CALC (26.0-32.0); MEAN CORPUSCULAR HGB CONC 32.9 g/dL CAL (32.0-36.0); NEUT# 5.81 thou/uL (1.82-7.42); RED BLOOD COUNT 4.96 mill/uL (4.70-6.10); RED CELL DISTRI WIDTH 14.3 % (11.5-15.5)
[2020-09-19 12:30] LABS: ALBUMIN 3.4 g/dL (3.2-5.0); ALKALINE PHOSPHATASE 86 u/l (38-126); ANION GAP 15 (6-22 (CALC)); BILIRUBIN, TOTAL 0.9 mg/dL (0.0-1.4); BUN 41 mg/dL (8-23); BUN/CREATININE RATIO 29 (12-20 (CALC)); CARBON DIOXIDE 22 mmol/l (22-30); CHLORIDE 104 mmol/l (95-108); CREATININE 1.4 mg/dL (0.7-1.3); GFR 50 ML/MIN (>=60 (CALC)); GFR FOR AFR.AMER. 60 ML/MIN (>=60 (CALC)); LIPASE 74 u/l (23-300); POTASSIUM 4.4 mmol/l (3.5-5.1); SGOT/AST 23 u/l (19-48); SODIUM 136 mmol/l (137-146); TOTAL PROTEIN 6.7 g/dL (6.3-8.2)
--- NOTE | 2020-09-19 12:30 | NUR ---
RESTING ON STRETCHER. FAMILY AT BEDSIDE.
[2020-09-19 12:34] LABS: URINE BILIRUBIN - DIPSTICK NEGATIVE (NEGATIVE); URINE BLOOD DIPSTICK MODERATE (NEGATIVE); URINE COLOR YELLOW; URINE GLUCOSE - DIPSTICK >=1000 mg/dL (NEGATIVE); URINE KETONE NEGATIVE (NEGATIVE); URINE PH 5.5 (4.5-8.0); URINE PROTEIN - DIPSTICK 30 mg/dL (NEG-TRACE); URINE UROBILINOGEN - DIPSTICK 0.2 E.U./dL (0.2)
[2020-09-19 12:36] LABS: INTERNATIONAL NORMALIZED RATIO 1.2 RATIO (0.7-1.3); PROTHROMBIN TIME 12.6 SECONDS (9.0-12.5)
[2020-09-19 12:37] LABS: URINE LEUK ESTERASE MODERATE (NEGATIVE); URINE NITRITE - DIPSTICK NEGATIVE (Negative)
[2020-09-19 12:47] LABS: URINE SQUAMOUS EPITHELIAL CELL FEW EPI/hpf (0-FEW); URINE WBC 50-100 WBC/hpf (0-5)
--- NOTE | 2020-09-19 13:28 | NUR ---
RESTING ON STRETCHER. IVF INFUSING WITHOUT DIFFICULTY. FAMILY AT BEDSIDE
--- NOTE | 2020-09-19 14:00 | NUR ---
THIRD BAG OF SALINE HUNG, ONLY 500ML TO BE ADMINISTERED PER MD
--- NOTE | 2020-09-19 15:00 | NUR ---
RESTING ON STRETCHER. FAMILY AT BEDSIDE
--- NOTE | 2020-09-19 16:00 | NUR ---
PACEMAKER INTERROGATED BY ÁNGEL VILLALTA
--- NOTE | 2020-09-19 16:50 | NUR ---
AWAITING READY BED FOR TRANSPORT TO ICU. PT RESTING QUIETLY ON STRETCHER
--- NOTE | 2020-09-19 16:57 | NUR ---
CRITICAL LAB RESULT CALLED FROM LAB: [facility] OF 2.2, DR TONEY AWARE
--- NOTE | 2020-09-19 17:32 | NUR ---
PT ARRIVED VIA STRETCHER ACCOMAPNIED BY Jocy RUIZ RN. A&O X4. NO DISTRESS NOTED. PT REMAINS VIA ROOM AIR REMAINING 97%. COARSE/DIMINISHED BREATH SOUNDS HEARD UPON AUSCULTATION. ACTIVE BOWEL SOUNDS X4 QUADRANTS. #20 RAC HEALTHY AND PATENT. WEAK PEDAL PULSES FELT UPON PALPATION. ASSESSMENT COMPLETED. ORIENTED PT TO ROOM. URINAL LEFT AT BEDSIDE. CALL LIGHT WITHIN REACH.
--- NOTE | 2020-09-19 17:44 | NUR ---
REPORT CALLED TO AMBAR CHOI. TO ICU ON OSTEOLOGY TEACHER WITH RN IN STABLE CONDITIONMORE KWON
[2020-09-19 20:00] VITALS: BP 104/49
[2020-09-19 20:40] VITALS: BP 64/52
--- NOTE | 2020-09-19 20:40 | NUR ---
BP NOTED TO BE LOW AT 64/52 MMHG WHILE SITTING ON BSC TO HAVE BM, BP RETAKEN WHILE STILL SITTING AT 2044: 96/54, STANDIN/44 MMHG, : LAYIN/54 MMHG. PATIENT DENIES DIZINESS AT THE TIME.
--- NOTE | 2020-09-19 20:40 | NUR ---
PATIENT SITS IN TOILET AFTER HAVING LARGE/PASTY/BROWN BM. BP NOTED TO BE 60'S SYSTOLIC, WAS RETAKEN AND IT WAS 90'S SYSTOLIC, ASSISTED WITH STANDING AND BP WAS 64/44 MMHG, HE LAYED DOWN AND BP WAS 118 /54 MMHG. PATIENT DENIES DIZZINESS, REPORTS HE FEELS, "TIRED." NURSE ASSESSMENT PERFORMED. PATIENT HAS BILAT WEAK LIMB DRIVER, TREMORS NOTED WHEN HANDS/ARMS MOVING THE, PT REPORTS THEY ARE NORMALLY LIKE THAT. 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 ALERT AND ORIENTED X4. ON RA, O2 SATS 97%, NO SOB NOTED. REPSOITIONS SELF. DOES NEED ASSISTANCE TO USE URINAL, VOIDS YELLOW/CLEAR URINE. TOLERATES MEDICATIONS WELL WITH WATER. CALL LIGHT WITHIN REACH.
[2020-09-19 20:45] VITALS: BP 96/54
[2020-09-19 20:48] VITALS: BP 64/44
[2020-09-19 20:51] VITALS: BP 118/54
[2020-09-19 22:00] VITALS: BP 81/48
[2020-09-20] VITALS (10 sets, daily range): BP systolic 90–133; BP diastolic 43–60
--- NOTE | 2020-09-20 00:43 | NUR ---
PATIENT RESTS WITH EYES CLOSED. NO COMPLAINTS OR NEEDS AT THIS TIME. CALL LIGHT WITHIN REACH.
[2020-09-20 05:48] LABS: MEAN CELL VOLUME 100.7 fL CALC (80.0-100.0); MEAN CORPUSCULAR HGB 32.8 pG CALC (26.0-32.0); MEAN CORPUSCULAR HGB CONC 32.6 g/dL CAL (32.0-36.0); RED BLOOD COUNT 4.27 mill/uL (4.70-6.10); RED CELL DISTRI WIDTH 14.4 % (11.5-15.5)
[2020-09-20 06:00] LABS: ANION GAP 11 (6-22 (CALC)); BUN 40 mg/dL (8-23); BUN/CREATININE RATIO 30 (12-20 (CALC)); CARBON DIOXIDE 21 mmol/l (22-30); CHLORIDE 108 mmol/l (95-108); CREATININE 1.3 mg/dL (0.7-1.3); GFR 54 ML/MIN (>=60 (CALC)); GFR FOR AFR.AMER. > 60 ML/MIN (>=60 (CALC)); MAGNESIUM 2.1 mg/dL (1.6-2.3); POTASSIUM 4.3 mmol/l (3.5-5.1); SODIUM 136 mmol/l (137-146)
--- NOTE | 2020-09-20 06:18 | NUR ---
PATIENT RESTS WITH EYES CLOSED. NO ACUTE DISTRESS SHOWN. CALL LIGHT WITHIN REACH.
--- NOTE | 2020-09-20 06:45 | NUR ---
REPORT RECEIVED FROM ROSA MARIA VILLALTA. CARE ASSUMED.
--- NOTE | 2020-09-20 07:15 | NUR ---
PT RESTING IN BED AWAKE. PT IS ALERT AND ORIENTED X3. SHIFT ASSESSMENT COMPLETED AT THIS TIME. IV PATENT X1. CALL LIGHT IN REACH. WILL CONTINUE TO MONITOR.
--- NOTE | 2020-09-20 07:37 | NUR ---
PT C NAD. VSS. GRANT SPECIALIST TO MONITOR.
[2020-09-20] MEDS ORDERED: ATORVASTATIN CA40 MG PO (07:53)
[2020-09-20] MEDS ORDERED: TRAVATAN Z0.004 % OU (07:53)
[2020-09-20] MEDS ORDERED: XARELTO10 MG PO (07:54)
[2020-09-20] MEDS ORDERED: VITAMIN D31000 UNI3 PO (07:54)
[2020-09-20] MEDS ORDERED: CARVEDILOL25 MG PO (07:56)
--- NOTE | 2020-09-20 08:00 | NUR ---
PT SET UP FOR AM MEAL AND FED BY NURSE WILCOX
--- NOTE | 2020-09-20 09:00 | NUR ---
DR SHANE AT BEDSIDE AT THIS TIME. PLAN OF CARE DISCUSSED.
--- NOTE | 2020-09-20 10:24 | NUR ---
PT RESTING IN BED AWKAE. RESP ARE EVEN AND UNLABORED. NO DISTRESS NOTED. CALLLIGHT IN REACH. WILL CONTINUE TO MONITOR.
[2020-09-20] MEDS ORDERED: LATANOPROST0.005 % OU (10:42)
[2020-09-20] MEDS ORDERED: SIMBRINZA1 SUS (10:50)
[2020-09-20] MEDS ORDERED: B-121000 MC1 PO (10:52)
[2020-09-20] MEDS ORDERED: GLIPIZIDE ER5 M1 PO (10:53)
[2020-09-20] MEDS ORDERED: HCTZ/TRIAMT1 TA1 PO (10:55)
[2020-09-20] MEDS ORDERED: CARBOXYMETHYLCE (10:56)
[2020-09-20] MEDS ORDERED: METFORMIN500 M2 PO (11:00)
[2020-09-20] MEDS ORDERED: CARVEDILOL6.25 MG PO (11:23)
[2020-09-20] MEDS ORDERED: SERTRALINE50 MG PO (11:26)
[2020-09-20] MEDS ORDERED: GLIPIZIDE5 M2 PO (11:28)
--- NOTE | 2020-09-20 12:40 | NUR ---
PT RSTING CMFORTABLY IN BED, WATCHING TV. NAD. VSS. COMMUNICATION PROFESSOR TO MONITOR.
--- NOTE | 2020-09-20 14:00 | NUR ---
DAUGHTER AT BEDSIDE PT RESTING IN BED. RESP ARE EVEN AND UNLABORED. CALL LIGHT IN PIEDAD. WILL CONTINUE TO MONITOR.
--- NOTE | 2020-09-20 15:40 | NUR ---
REPORT CALLED TO OJ VILLALTA.
--- NOTE | 2020-09-20 15:56 | NUR ---
PT TRANSFERRED TO [facility] VIA WHEELCHAIR ACCOMPANIED BY NURSE AND MANAGER OF TAX. PT TOLERATED TANSFER WELL.
--- NOTE | 2020-09-20 16:00 | NUR ---
ARRIVED FROM THE ICU VIA A STREACHER. AXOX3, NOTED HE IS BLIND IN THE RIGHT EYE. INTO BED WITH ASST, SITA WELL. REPOSITIONED FOR COMOFRT, SIDE RAILS UP CALL LIGHT IN REACH BED LOCKED IN LOW POSITION, ALL SAFTY MEASURES IN PLACE, WILL CONTINUE OT MONIOTR THE PATIENT.
--- NOTE | 2020-09-20 16:24 | NUR ---
PT VOIDING CLEAR YELLOW URINE.
--- NOTE | 2020-09-20 17:36 | NUR ---
PT RESTING COMFORTABLE NO DISTRESS NOTED AT THIS TIME.
--- NOTE | 2020-09-20 23:52 | NUR ---
IVF REPLENISHED AT THIS TIME. PT WAS SLEEPING, BUT AWOKE TO MY VOICE. DENIES ANY NEEDS AT THIS TIME. CALL LIGHT IS W/IN REACH.
[2020-09-21] VITALS (9 sets, daily range): BP systolic 104–133; BP diastolic 35–75
--- NOTE | 2020-09-21 03:00 | NUR ---
PT IN BED WITH EYES OPEN AND ABLE TO MAKE NEEDS KNOWN. PT DENIES ANY RESPIRATORY DISTRESS AND DENIESPAIN. CONTINENT OF B/B AND ASSIST X 1 WITH URINAL. IV INTACT AND FLUIDS RUNNING WITH NO COMPLICATIONS NOTED. CALL LIGHT WITHIN REACH. WILL CONTINUE TO OBSERVE
--- NOTE | 2020-09-21 07:00 | NUR ---
RECIEVED REPORT FROM NICOLERN
[2020-09-21 07:23] LABS: HEMATOCRIT 43.3 % (39.0-50.0); MEAN CELL VOLUME 101.2 fL CALC (80.0-100.0); MEAN CORPUSCULAR HGB 32.7 pG CALC (26.0-32.0); MEAN CORPUSCULAR HGB CONC 32.3 g/dL CAL (32.0-36.0); RED BLOOD COUNT 4.28 mill/uL (4.70-6.10); RED CELL DISTRI WIDTH 14.3 % (11.5-15.5)
[2020-09-21 07:43] LABS: CREATININE 1.5 mg/dL (0.7-1.3); POTASSIUM 4.5 mmol/l (3.5-5.1)
--- NOTE | 2020-09-21 08:08 | NUR ---
DR SHANE AT BEDSIDE
--- NOTE | 2020-09-21 08:13 | NUR ---
PT RESTING IN SEMI FOWLERS POSITION EATING BREAKFAST UPON ENTERING ROOM.PT IS A/O X3. ASSESSMENT AND VITALS COMPLETED.BP 126/66, HR 79, O2 96% ON ROOM AIR. RESPIRATIONS ARE EVEN AND UNLABORED WITH NO DISRTESS NOTED.WHEEZING PRESENT IN ALL LOBES UPON ALSCULTATION. BOWEL SOUNDS ARE ACTIVE. PEDAL PULSES WEAK. #20G RAC INFUSING WITH IVF PER ORDER, SITE REMAINS HEALTHY AND PATENT.SKIN INTACT.SCATTERED BRUISING NOTED THROUGHOUT.DISCOLORED BLE WITH TRACE EDEMA. PT DENIES OF ANY PAINS AT THIS TIME. ALL SAFETY PRECAUTIONS ARE IN PLACE WITH CALL LIGHT IN REACH. WILL CONTINUE TO MONITOR.
--- NOTE | 2020-09-21 08:33 | NUR ---
ORTHOSTATIC BP COMPLETED. LAYING 120/58, HR 64. SITTING 122/67, HR 73. STANDING 104/35, HR 116.PT STATES HE " FELLS ALRIGHT." PT DENIES DIZZINESS OR LIGHT HEADED. NOTIFIED.
--- NOTE | 2020-09-21 12:25 | NUR ---
PT SITTING UP IN CHAIR.REPSIRATIONS ARE EVEN AND UNLABORED. IVF INFUSING PER ORDER, SITE REMAINS HEALTHY.TELE MONITORING IN PLACE.PT INFORMED OF DC. PT DENIES OF ANY NEEDS ATTHIS TIME.ALL SAFETY PRECAUTIONS ARE IN PLACE WITH CALL LIGHT IN REACH.WILL CONTINUE TO MONITOR.
--- NOTE | 2020-09-21 13:36 | NUR ---
DR SHANE AT BEDSIDE
--- NOTE | 2020-09-21 16:34 | NUR ---
PT SLEEPING IN SEMI FOWLES POSITION.RESPIRATIONS ARE EVEN AND UNLABORED ON ROOM AIR.TELE MONITORING IN PLACE. #20G RAC INFUSING WITH IVF PER ORDER, SITE REMAINS HEALTHY AND PATENT. NO SIGNS OF ANY PAINS OR DISCOMFORTS AT THIS TIME.ALL SAFETY PRECAUTIONS ARE IN PLACE. WILL CONTINUE TO MONITOR.
--- NOTE | 2020-09-22 03:56 | NUR ---
PT RESTING IN BED, NO SIGNS OF DISTRESS NOTED, RESP EVEN AND UNLABORED. PT VOICES NO NEEDS OR COMPLAINTS AT THIS TIME. CALL LIGHT IN REACH, CONTINUE TO MONITOR.
[2020-09-22 04:00] VITALS: BP 113/65
--- NOTE | 2020-09-22 07:00 | NUR ---
RECIEVED REPORT FROM AMBAR SMITH
[2020-09-22 07:42] VITALS: BP 122/57
--- NOTE | 2020-09-22 07:42 | NUR ---
PT RESTING IN SEMI FOWLERS POSITION UPON ENTERING ROOM.PT IS A/O X3.ASSESSMENT AND VITALS COMPLETED.BP 122/57, HR 75, O2 98% ON ROOM AIR. RESPIRATIONS ARE EVEN AND UNLABORED WITH NO DISTRESS NOTED. DIMINISHED WHEEZING PRESENT UPON ASCULTATION. HEART RHYTHM IRREGULAR WITH TELE IN PLACE. BOWEL SOUNDS ARE ACTIVE.#20G RAC INFUSING WITH IVF PER ORDER, SITE REMAINS HEALTHY AND PATENT. SKIN INTACT.BRUISING NOTED THROUGHOUT. PEDAL PULSES WEAK.TRACE EDEMA NOTED TO BLE WITH SOME DISCOLORATION. PT BLIND IN RIGHT EYE AND FAR SITEDED IN LEFT. PT DENIES OF ANY PAINS OR DISCOMFORTS AT THIS TIME. ALL SAFETY PRECAUTIONS ARE IN PLACE WITH CALL LIGHT IN REACH.WILL CONTINUE TO MONITOR.
[2020-09-22 10:35] VITALS: BP 128/46
--- NOTE | 2020-09-22 11:30 | NUR ---
DR THOMAS AT BEDSIDE
--- NOTE | 2020-09-22 11:54 | NUR ---
PT SITTING UP IN CHAIR EATING LUNCH. RESPIRATIONS ARE EVEN AND UNLABORED WITH NO DISTRESS NOTED. IV FLUIDS REMAINS INFUSING WITH EASE, SITE REMAINS HEALTHY AND PATENT.TELE MONITORING IN PLACE. PT DENIES OF ANY NEEDS AT THIS TIME. ALL SAFETY PRECAUTIONS ARE IN PLACE WITH CALL LIGHT IN REACH. WILL CONTINUE TO MONITOR.
[2020-09-22] MEDS ORDERED: KEFLEX500 MG PO (12:24)
--- NOTE | 2020-09-22 13:04 | NUR ---
PT EDUCATED IN DC INSTRCUTIONS AND NEW MEDICATON KEFLEX.PT VERBLAIZED UNDERSTANDING. DAUGHTER CALL AND INFORMED. VERBLAIZED UNDERSTANDING. IV REMOVED WITH CATAHTER STILL INTACT.TELE REMOVED.ER NOTIFIED. WAITING FOR TRANSPORTATION. WILL CONTINUE TO MONITOR
--- NOTE | 2020-09-22 14:39 | NUR ---
Discharge instructions given. Patient verbalizes understanding of same. Discharged in stable condition via Wheelchair to Home with family. All belongings sent with pt. PT DC HOME IN STABLE CONDITON WITH ALL BELONINGS AND DC INSTRUCTIONS ACCOMPAINED BY STAFF.
== END 2020-09-22 13:37 | disposition home health service (06) ==
LOC: ED 11:31 → ED-I 13:32 → ED 13:45 → ICU 13:46 → ED-I 13:46 → ICU 16:47 → MS2 09-20 16:00
PROVIDERS: Family Medicine; Nurse Practitioner; ADMIT Internal Medicine; ATTEND Internal Medicine
DX: N39.0 Urinary tract infection, site not specified (principal); I95.1 Orthostatic hypotension; I11.0 Hypertensive heart disease with heart failure; I50.22 Chronic systolic (congestive) heart failure; R06.2 Wheezing; I48.91 Unspecified atrial fibrillation; E11.40 Type 2 diabetes mellitus with diabetic neuropathy, unspecified; I25.10 Atherosclerotic heart disease of native coronary artery without angina pectoris; E78.5 Hyperlipidemia, unspecified; M19.90 Unspecified osteoarthritis, unspecified site; H54.61 Unqualified visual loss, right eye, normal vision left eye; H40.9 Unspecified glaucoma; F17.210 Nicotine dependence, cigarettes, uncomplicated; B96.1 Klebsiella pneumoniae [K. pneumoniae] as the cause of diseases classified elsewhere; Z79.84 Long term (current) use of oral hypoglycemic drugs; Z95.1 Presence of aortocoronary bypass graft; Z20.822 Contact with and (suspected) exposure to COVID-19
CPT/HCPCS: G0378; J1650

== ENCOUNTER 2020-10-04 11:07 | Inpatient (IN) | payer MEDICARE, BC ==
[~2020-10-04] VITALS: Ht 175.3 cm; Wt 96.0 kg
[~2020-10-04 11:07] MED LIST changes: +ATORVASTATIN CA40 MG PO; +B-121000 MC1 PO; +CARBOXYMETHYLCE; +CARVEDILOL25 MG PO; +CARVEDILOL6.25 MG PO; +GLIPIZIDE ER5 M1 PO; +GLIPIZIDE5 M2 PO; +HCTZ/TRIAMT1 TA1 PO; +LATANOPROST0.005 % OU; +METFORMIN500 M2 PO; +SERTRALINE50 MG PO; +SIMBRINZA1 SUS; +TRAVATAN Z0.004 % OU; +VITAMIN D31000 UNI3 PO; +XARELTO10 MG PO
--- NOTE | 2020-10-04 11:15 | NUR ---
PT TO ROOM BY NICHOLAS
--- NOTE | 2020-10-04 12:15 | NUR ---
IV INTIATED WITH BLOOD SPECIMENS COLLECTED. PT TOLERATED WELL. ADVISED OF WAIT TIME FOR RESULTS. VERBALIZED UNDERSTANDING. DENIES ANY NEEDS.
[2020-10-04 12:49] LABS: HEMATOCRIT 43.4 % (39.0-50.0); HEMOGLOBIN 13.7 g/dl (14.0-18.0); IMMATURE GRANULOCYTES 0.2 % (0.0-5.0); MEAN CELL VOLUME 102.6 fL CALC (80.0-100.0); MEAN CORPUSCULAR HGB 32.4 pG CALC (26.0-32.0); MEAN CORPUSCULAR HGB CONC 31.6 g/dL CAL (32.0-36.0); NEUT# 6.94 thou/uL (1.82-7.42); RED BLOOD COUNT 4.23 mill/uL (4.70-6.10); RED CELL DISTRI WIDTH 14.2 % (11.5-15.5)
--- NOTE | 2020-10-04 13:00 | NUR ---
PT RESTING ON STRETCHER IN PRONE POSITION FOR COMFORT IN NAD. RESP EVEN AND UNLABORED. SKIN WARM AND DRY. VERBALIZES NO NEEDS. CALL LIGHT WITHIN REACH.
[2020-10-04 13:22] LABS: ALBUMIN 3.6 g/dL (3.2-5.0); ALKALINE PHOSPHATASE 72 u/l (38-126); ANION GAP 13 (6-22 (CALC)); BILIRUBIN, TOTAL 0.7 mg/dL (0.0-1.4); BUN 28 mg/dL (8-23); BUN/CREATININE RATIO 21 (12-20 (CALC)); CARBON DIOXIDE 24 mmol/l (22-30); CHLORIDE 103 mmol/l (95-108); CREATININE 1.3 mg/dL (0.7-1.3); GFR 54 ML/MIN (>=60 (CALC)); GFR FOR AFR.AMER. > 60 ML/MIN (>=60 (CALC)); POTASSIUM 3.9 mmol/l (3.5-5.1); SGOT/AST 25 u/l (19-48); SODIUM 137 mmol/l (137-146); TOTAL PROTEIN 7.3 g/dL (6.3-8.2)
--- NOTE | 2020-10-04 13:45 | NUR ---
UNABLE TO OBTAIN MEDICATION HISTORY, PT CANNOT RECALL NAMES.
--- NOTE | 2020-10-04 14:30 | NUR ---
PT RESTING ON STRETCHER IN NAD. RESP EVEN AND UNLAB. SKIN WARM AND DRY. VERBALIZES NO NEEDS. CALL LIGHT WTHIN REACH.
[2020-10-04] MEDS ORDERED: TRAVATAN Z0.004 % OU (15:24)
[2020-10-04] MEDS ORDERED: BETIMOL0.5 % OU (15:25)
[2020-10-04] MEDS ORDERED: ASPIRIN ADULT L81 M2 PO (15:25)
[2020-10-04] MEDS ORDERED: ATORVASTATIN CA40 MG PO (15:25)
[2020-10-04] MEDS ORDERED: SERTRALINE50 MG PO (15:26)
[2020-10-04] MEDS ORDERED: FOLIC ACID1 MG PO (15:26)
[2020-10-04] MEDS ORDERED: VITAMIN D-31000 UNI1 PO (15:26)
[2020-10-04] MEDS ORDERED: XARELTO10 MG PO (15:27)
[2020-10-04] MEDS ORDERED: JARDIANCE10 MG PO (15:28)
[2020-10-04] MEDS ORDERED: GABAPENTIN300 M2 PO (15:28)
[2020-10-04] MEDS ORDERED: CARVEDILOL6.25 MG PO (15:29)
--- NOTE | 2020-10-04 16:09 | NUR ---
PT REPORT PROVIDED TO STEPH VILLALTA
--- NOTE | 2020-10-04 16:15 | NUR ---
PATIENT TO ROOM 261 VIA STRETCHER ACCOMPANIED BY ER NURSE. PATIENT ABLE TO TRANSFER FROM STRETCHER TO BED. PATIENT IS ALERT AND ORIENTED X3. ADMISSION ASSESSMENT COMPLETED AT THSI TIME. IV PATENT X1. ORIENTED TO ROOM AND UNIT. CALL LIGHT IN REACH. WILL CONTINUE TO MONITOR.
--- NOTE | 2020-10-04 16:15 | NUR ---
Admission Note Report Given to: STEPH RN Transported by: Wheelchair X Stretcher Transported with: X Nurse Transporter X Patent IV O2 Manager Er Location: ICU X MS[facility] PT TRANSPORTED TO MS 261 IN STABLE CONDITION, NURSE MADE AWARE OF PT ARRIVAL.
[2020-10-04 16:16] VITALS: BP 110/49
[2020-10-04 18:27] VITALS: BP 125/63
--- NOTE | 2020-10-04 20:30 | NUR ---
PATIENT IS ALERT AND ORIENTED X3. ABLE TO MAKE NEEDS KNOWN. DENEIS PAIN. REPORTS FEELING COLD. 2 WARMED BLANKETS GOTTEN AND USED WITH POSITIVE EFFECT. ASSESSMENT COMPLETED. MEDICATION COMPLIANT. PT UNABLE TO USE URINAL ON HIS OWN. REPORTS NOT HAVING FEELING IN HIS HANDS. IVF INFUSING ORDERED. BED IN LOW POSITION. CALL LIGHT WITHIN REACH.
[2020-10-05] VITALS (12 sets, daily range): BP systolic 97–149; BP diastolic 41–66
--- NOTE | 2020-10-05 00:58 | NUR ---
RESTING QUIETLY. NO COMPLAINTS.
--- NOTE | 2020-10-05 05:12 | NUR ---
NO CHANGES NOTED IN CONDITION. RESTING WITH EYES CLOSED.
[2020-10-05 06:00] LABS: HEMATOCRIT 39.3 % (39.0-50.0); HEMOGLOBIN 12.6 g/dl (14.0-18.0); MEAN CELL VOLUME 101.8 fL CALC (80.0-100.0); MEAN CORPUSCULAR HGB 32.6 pG CALC (26.0-32.0); MEAN CORPUSCULAR HGB CONC 32.1 g/dL CAL (32.0-36.0); RED BLOOD COUNT 3.86 mill/uL (4.70-6.10); RED CELL DISTRI WIDTH 14.1 % (11.5-15.5)
[2020-10-05 06:17] LABS: ANION GAP 10 (6-22 (CALC)); BUN 26 mg/dL (8-23); BUN/CREATININE RATIO 20 (12-20 (CALC)); CARBON DIOXIDE 23 mmol/l (22-30); CHLORIDE 107 mmol/l (95-108); CREATININE 1.3 mg/dL (0.7-1.3); GFR 54 ML/MIN (>=60 (CALC)); GFR FOR AFR.AMER. > 60 ML/MIN (>=60 (CALC)); MAGNESIUM 2.1 mg/dL (1.6-2.3); POTASSIUM 4.1 mmol/l (3.5-5.1); SODIUM 136 mmol/l (137-146)
--- NOTE | 2020-10-05 06:50 | NUR ---
REPORT FROM SHASHA VILLALTA. PT RESTING IN BED. WAKES EASILY. ALERT AND ORIENTED X3. NO APPARENT DISTRESS NOTED. RESPIRATIONS EVEN AND UNLABORED. PT REMAINS NPO FOR SCHEDULED PROCEDURE. IV SITE APPEARS HEALTHY WITH IV INFUSING. PT DENIES ANY PAIN OR DISCOMFORT. DISCUSSED POC AND SAFETY PRECAUTIONS. CALL LIGHT WITHIN REACH. WILL CONTINUE TO MONITOR.
--- NOTE | 2020-10-05 08:15 | NUR ---
PT INCONTINENT OF BLADDER, PT STATES DUE TO NEUROPATHY IN HANDS. ENCOURAGED PT TO CALL FOR ASSISTANCE. PERICARE AND HALF BED BATH PROVIDED. COMPLETE LINEN CHANGE. PT REMAINS NPO AT THIS TIME.
--- NOTE | 2020-10-05 08:30 | NUR ---
HOLD AM MEDS PER OR NURSE MALDONADO.
--- NOTE | 2020-10-05 09:29 | NUR ---
PT LEFT UNIT WITH OR STAFF IN STABLE CONDITION.
--- NOTE | 2020-10-05 12:03 | NUR ---
PT ARRIVED VIA STRETCHER ACCOMPAINED BY OR STAFF. PT IN STABLE CONDITION.
--- NOTE | 2020-10-05 13:10 | NUR ---
COPIOUS AMOUNT OF BLOOD NOTED COMING FROM I&D SITE. VSS. DR. MEDELLIN NOTIFIED. NO NEW ORDERS AT THIS TIME. DRESSING AND LINENS CHNAGED. PT DENIES ANY PAIN OR DISCOMFORT. CALL LIGHT WITHIN REACH. WILL CONTINUE TO MONITOR.
--- NOTE | 2020-10-05 13:36 | NUR ---
DR. MEDELLIN AT BEDSIDE.
--- NOTE | 2020-10-05 14:38 | NUR ---
MODERATE AMOUNT OF BLOOD NOTED TO DRESSING. PT DENIES ANY PAIN OR DISCOMFORT. ASSISTED PT WITH URINAL AT THIS TIME. PT VOIDED WITHOUT DIFFICULTY 200ML. NO CURRENT WANTS OR NEEDS. CALL LIGHT WITHIN REACH. WILL CONTINUE TO MONITOR.
--- NOTE | 2020-10-05 18:33 | NUR ---
MODERATE AMOUNT OF BLOODY OUTPUT COMING FROM I&D SITE. DRESSING AND LINENS CHANGED. PT TOLERATED WELL. PT DENIES ANY PAIN OR DISCOMFORT. NO CURRENT WANTS OR NEEDS. VSS. NO APPARENT DISTRESS NOTED. CALL LIGHT WITHIN REACH. WILL CONTINUE TO MONITOR.
--- NOTE | 2020-10-05 20:24 | NUR ---
PATIENT RESTING IN BED LAYING ON SIDE. PATIENT REPORTS NOT ABLE TO LAY ON BACK FOR ANY PERIOD OF TIME. PILLOW ADJUSTED UNDER BUTTOCKS TO QUALITY IMPROVEMENT ENGINEER IN DRAINAGE. DRESSING CDI AT THIS TIME. NO SATURATION TO ABD PADS AT THIS TIME. BED IN LOW POSITION. CALL LIGHT WITHIN REACH. ASSESSMENT COMPLETE. CHARTED.
--- NOTE | 2020-10-06 01:13 | NUR ---
PATIENT DRESSING TO LEFT BUTTOCKS SATURATED. ABD PADS X2 REMOVED AND REPLACED WITH NEW. PATIENT TOLERATED WELL. STILL DENIES PAIN. ABD PADS WERE SATURATED WITH SANGUENOUS FLUID. PATIENT REPOSITIONED TO ENCOURAGE DRAINING. BED IN LOW POSITION. CALL LIGHT WITHIN REACH.
[2020-10-06 03:30] VITALS: BP 106/47
--- NOTE | 2020-10-06 04:58 | NUR ---
NO CHANGES TO PATIENT CONDITION. RESTING WITH EYES CLOSED. NO ACUTE DISTRESS NOTED.
--- NOTE | 2020-10-06 05:48 | NUR ---
DRESSING TO LEFT BUTT. ABD PADS CLEAN AT THIS TIME NO DRAINAGE SHOWING THROUGH.
[2020-10-06 06:27] LABS: HEMATOCRIT 38.2 % (39.0-50.0); HEMOGLOBIN 12.1 g/dl (14.0-18.0); MEAN CELL VOLUME 104.1 fL CALC (80.0-100.0); MEAN CORPUSCULAR HGB CONC 31.7 g/dL CAL (32.0-36.0); RED BLOOD COUNT 3.67 mill/uL (4.70-6.10); RED CELL DISTRI WIDTH 13.9 % (11.5-15.5)
[2020-10-06 06:47] LABS: ANION GAP 11 (6-22 (CALC)); BUN 26 mg/dL (8-23); BUN/CREATININE RATIO 22 (12-20 (CALC)); CARBON DIOXIDE 22 mmol/l (22-30); CHLORIDE 108 mmol/l (95-108); CREATININE 1.2 mg/dL (0.7-1.3); GFR 59 ML/MIN (>=60 (CALC)); GFR FOR AFR.AMER. > 60 ML/MIN (>=60 (CALC)); POTASSIUM 4.3 mmol/l (3.5-5.1); SODIUM 137 mmol/l (137-146)
--- NOTE | 2020-10-06 08:20 | NUR ---
PATIENT IS RESTING ON HIS LEFT SIDE IN BED. PATIENT IS ALERT AND ORIENT X3. PATIENT DENIES PAIN. REPS EVEN AND UNLABORED. IVF INFUSING WELL. RIGHT BUTTOCKS DRESSING HAS MILD BLOODY DRAINAGE NOTED. SCD IN PLACE. PATIENT DENIES NEEDS AT THIS TIME. CALL LIGHT IN REACH.
[2020-10-06 08:29] VITALS: BP 140/57
[2020-10-06 10:30] VITALS: BP 134/74
--- NOTE | 2020-10-06 12:35 | NUR ---
ASSISTED PATIENT TO THE BATHROOM AND THEN BACK TO BED. PATIENT DENIES PAIN OR NEEDS AT THIS TIME. CALL LIGHT IN REACH.
--- NOTE | 2020-10-06 13:29 | NUR ---
CHANGE PATIENT DRESSING IN BUTTOCKS PER DR. MEDELLIN ORDER. MILD BLOODY DRAINAGE NOTED.
--- NOTE | 2020-10-06 13:39 | NUR ---
Discharge instructions given. Patient verbalizes understanding of same. Discharged in stable condition via Wheelchair to Home with staff. All belongings sent with pt.
== END 2020-10-06 13:39 | disposition home health service (06) | DRG 357 ==
LOC: ED 11:07 → ED-I 14:54 → ED 14:57 → MS2 14:58
PROVIDERS: Nurse Practitioner; ADMIT Hospitalist; ATTEND Hospitalist
PROC: 0J9B0ZZ Drainage of Perineum Subcutaneous Tissue and Fascia, Open Approach (ICD-10-PCS; principal; 2020-10-05)
DX: K61.39 Other ischiorectal abscess (principal); N17.9 Acute kidney failure, unspecified; I12.9 Hypertensive chronic kidney disease with stage 1 through stage 4 chronic kidney disease, or unspecified chronic kidney disease; E11.22 Type 2 diabetes mellitus with diabetic chronic kidney disease; N18.9 Chronic kidney disease, unspecified; E11.40 Type 2 diabetes mellitus with diabetic neuropathy, unspecified; E78.5 Hyperlipidemia, unspecified; I25.10 Atherosclerotic heart disease of native coronary artery without angina pectoris; I48.91 Unspecified atrial fibrillation; H40.9 Unspecified glaucoma; H54.61 Unqualified visual loss, right eye, normal vision left eye; F17.210 Nicotine dependence, cigarettes, uncomplicated; Z79.84 Long term (current) use of oral hypoglycemic drugs; Z95.1 Presence of aortocoronary bypass graft; Z20.822 Contact with and (suspected) exposure to COVID-19
CPT/HCPCS: C9290

== ENCOUNTER 2022-06-17 06:55 | Emergency (ER) | payer OTHER, MEDICARE, BC ==
[2022-06-17] VITALS (11 sets, daily range): BP systolic 129–154; BP diastolic 50–70
[~2022-06-17] VITALS: Ht 175.3 cm; Wt 99.8 kg
[~2022-06-17 06:55] MED LIST changes: +ASPIRIN ADULT L81 M2 PO; +VITAMIN D-31000 UNI1 PO
[2022-06-17] MEDS ORDERED: ENTRESTO 24-261 TAB (08:54)
[2022-06-17] MEDS ORDERED: GABAPENTIN100 MG PO (10:53)
== END 2022-06-17 12:49 | disposition home or self-care (01) | DRG 556 ==
LOC: ED 06:55
DX: M25.521 Pain in right elbow (principal); E11.42 Type 2 diabetes mellitus with diabetic polyneuropathy; Z79.84 Long term (current) use of oral hypoglycemic drugs; Z95.1 Presence of aortocoronary bypass graft; I25.10 Atherosclerotic heart disease of native coronary artery without angina pectoris; I48.91 Unspecified atrial fibrillation; Z79.01 Long term (current) use of anticoagulants